=== PATIENT | female | born 1945 | race Caucasian/White ===

== ENCOUNTER 2017-03-12 15:39 | Inpatient (IN) | payer OTHER ==
[~2017-03-12] VITALS: Ht 167.6 cm; Wt 122.6 kg
[~2017-03-12 15:39] MED LIST: ACID1TAB7 PO; AMLO5TAB2 PO; CLIN300C8 PO; COLC0.6T37 PO; FURO20TA3 PO; GLIP10TA13 PO; INSU100I18 SQ-INSULIN; INSU100V5 SQ-INSULIN; LOSA25TA2 PO; LOSA25TA5 PO; METF10002 PO; NPH,100V SQ; NPH,100V SQ-INSULIN; NYST60PO TP; ONDA4VIA4 IVPush; OXYC10TA6 PO; OXYC1TAB7 PO; OXYC5TAB3 PO; POLY17PO5 PO; POTA10TA11 PO
[2017-03-12] MEDS ORDERED: SODIUM CHLORIDE FLUSH 10ML SYR IVF ONE (16:00)
[2017-03-12 16:22] LABS: BASOPHILS # (AUTO) 0.16 x10^3/uL (0-0.1); BASOPHILS % (AUTO) 1 % (0-1); EOSINOPHILS # (AUTO) 0.12 x10^3/uL (0-0.4); EOSINOPHILS % (AUTO) 1 % (1-7); LYMPHOCYTES # (AUTO) 1.94 x10^3/uL (1-3.4); LYMPHOCYTES % (AUTO) 15 % (22-44); MD NO; MEAN CORPUSCULAR HEMOGLOBIN 27.6 pg (27.0-34.8); MEAN CORPUSCULAR HGB CONC 32.8 g/dL (32.4-35.8); MEAN CORPUSCULAR VOLUME 84.1 fL (80-100); MEAN PLATELET VOLUME 10.5 fL (7.4-10.4); MONOCYTES # (AUTO) 0.55 x10^3/uL (0.2-0.8); MONOCYTES % (AUTO) 4 % (2-9); NEUTROPHILS # (AUTO) 10.59 x10^3/uL (1.8-6.8); NEUTROPHILS % (AUTO) 79 % (42-75); PLATELET COUNT 282 x10^3/uL (130-400); RED BLOOD COUNT 5.44 x10^6/uL (3.82-5.3); RED CELL DISTRIBUTION WIDTH 14.6 % (9.6-15.2)
[2017-03-12 16:31] LABS: INTERNATIONAL NORMALIZED RATIO 1.02 (0.93-1.1); PROTHROMBIN TIME 10.6 Seconds (9.6-11.5)
[2017-03-12 16:34] LABS: ALANINE AMINOTRANSFERASE 50 U/L (12-78); ALBUMIN 3.6 g/dL (3.4-5.0); ANION GAP 13 mmol/L (5-15); CALCIUM 9.3 mg/dL (8.5-10.1); CHLORIDE 102 mmol/L (98-107); CREATININE 1.55 mg/dL (0.55-1.02)
[2017-03-12 16:38] LABS: ALKALINE PHOSPHATASE 100 U/L (45-117); TOTAL PROTEIN 8.1 g/dL (6.4-8.2); TROPONIN I 0.092 ng/mL (0.000-0.045)
[2017-03-12] MEDS ORDERED: SODIUM CHLORIDE 0.9% 1,000ML IVBOLUS ONE (17:30)
[2017-03-12] MEDS ORDERED: HEPARIN 5,000 UNITS/ML, 1ML IV ONE (19:30)
[2017-03-12] MEDS ORDERED: HEPARIN 5,000 UNITS/ML, 1ML ONE (19:44)
[2017-03-12] MEDS ORDERED: HEPARIN 25,000 UNITS/500ML PMX 500 ML ONE (19:44)
[2017-03-12] MEDS: HEPARIN 25,000 UNITS/500ML PMX 500 ML IV PRN (19:52)
[2017-03-12] MEDS ORDERED: SODIUM CHLORIDE FLUSH 10ML SYR IVF PRN (20:00)
[2017-03-12] MEDS ORDERED: morphine SULFATE 10 MG/ML, 1ML IVPush PRN (20:30)
[2017-03-12] MEDS ORDERED: BISACODYL 10 MG SUPP PR PRN (20:30)
[2017-03-12] MEDS ORDERED: DOCUSATE 100 MG CAPSULE PO PRN (20:30)
[2017-03-12] MEDS ORDERED: LABETALOL 5MG/ML, 20ML IVPush PRN (20:30)
[2017-03-12] MEDS ORDERED: POLYETHYLENE GLYCOL 17 GM PACKET PO PRN ×2 (20:30)
[2017-03-12] MEDS ORDERED: ONDANSETRON 2MG/ML, 2ML IVPush PRN (20:30)
[2017-03-12] MEDS: AMLODIPINE 5 MG TABLET PO SCH (22:50)
[2017-03-12] MEDS: COLCHICINE 0.6 MG TABLET PO SCH (22:50)
[2017-03-12] MEDS: INSULIN ASPART 100 UNITS/ML, PEN SQ-INSULIN SCH (23:19)
[2017-03-12] MEDS ORDERED: OMNIPAQUE 350 MG/ML, 100ML BOTTLE ONE (23:33)
[2017-03-13] MEDS ORDERED: NS + 20MEQ KCL 1,000 ML IV ONE ×2 (00:06→08:39)
[2017-03-13] MEDS: NS + 20MEQ KCL 1,000 ML IV SCH ×3 (00:14→18:00)
[2017-03-13] MEDS: NYSTATIN TOPICAL POWDER 15GM TP SCH ×3 (01:40→20:25)
[2017-03-13] MEDS ORDERED: HYDROcodone/APAP 5/325 TABLET ONE (02:06)
[2017-03-13] MEDS: HYDROcodone/APAP 5/325 TABLET PO PRN ×2 (02:09→19:46)
[2017-03-13 02:22] LABS: ALANINE AMINOTRANSFERASE 38 U/L (12-78); ANION GAP 9 mmol/L (5-15); CALCIUM 8.5 mg/dL (8.5-10.1); CHLORIDE 109 mmol/L (98-107); CREATININE 1.59 mg/dL (0.55-1.02)
[2017-03-13 02:24] LABS: ALKALINE PHOSPHATASE 84 U/L (45-117); BASOPHILS # (AUTO) 0.01 x10^3/uL (0-0.1); BASOPHILS % (AUTO) 0 % (0-1); BILIRUBIN,TOTAL 0.5 mg/dL (0.2-1.0); EOSINOPHILS # (AUTO) 0.07 x10^3/uL (0-0.4); EOSINOPHILS % (AUTO) 1 % (1-7); LYMPHOCYTES # (AUTO) 2.09 x10^3/uL (1-3.4); LYMPHOCYTES % (AUTO) 22 % (22-44); MD NO; MEAN CORPUSCULAR HEMOGLOBIN 27.4 pg (27.0-34.8); MEAN CORPUSCULAR HGB CONC 32.8 g/dL (32.4-35.8); MEAN CORPUSCULAR VOLUME 83.8 fL (80-100); MEAN PLATELET VOLUME 10.3 fL (7.4-10.4); MONOCYTES # (AUTO) 0.78 x10^3/uL (0.2-0.8); MONOCYTES % (AUTO) 8 % (2-9); NEUTROPHILS # (AUTO) 6.45 x10^3/uL (1.8-6.8); NEUTROPHILS % (AUTO) 69 % (42-75); PLATELET COUNT 250 x10^3/uL (130-400); RED BLOOD COUNT 4.91 x10^6/uL (3.82-5.3); RED CELL DISTRIBUTION WIDTH 14.6 % (9.6-15.2); TOTAL PROTEIN 6.9 g/dL (6.4-8.2)
[2017-03-13] MEDS ORDERED: HEPARIN 5,000 UNITS/ML, 1ML ONE ×2 (02:46→08:39)
[2017-03-13] MEDS: HEPARIN 5,000 UNITS/ML, 1ML IV PRN ×3 (02:49→21:59)
[2017-03-13] MEDS: COLCHICINE 0.6 MG TABLET PO SCH ×3 (09:02→19:42)
[2017-03-13] MEDS: AMLODIPINE 5 MG TABLET PO SCH ×2 (09:02→20:25)
[2017-03-13] MEDS: LOSARTAN 25MG TABLET PO SCH (09:03)
[2017-03-13] MEDS: INSULIN ASPART 100 UNITS/ML, PEN SQ-INSULIN SCH ×4 (09:11→20:29)
[2017-03-13] MEDS ORDERED: PHARMACOKINETIC MONITORING MC PRN (13:30)
[2017-03-13] MEDS ORDERED: PHARMACOKINETIC CONSULTATION MC ONE (13:30)
[2017-03-13] MEDS ORDERED: VANCOMYCIN PER PHARMACY MC PRN (13:30)
[2017-03-13] MEDS ORDERED: VANCOMYCIN 2,200 MG in SODIUM CHLORIDE 0.9% 500 ML IV SCH (14:00)
[2017-03-13] MEDS: HEPARIN 25,000 UNITS/500ML PMX 500 ML IV PRN (19:20)
[2017-03-14] MEDS: NS + 20MEQ KCL 1,000 ML IV SCH ×2 (03:17→06:32)
[2017-03-14] MEDS: HYDROcodone/APAP 5/325 TABLET PO PRN (03:17)
[2017-03-14 04:38] LABS: BASOPHILS # (AUTO) 0.03 x10^3/uL (0-0.1); BASOPHILS % (AUTO) 0 % (0-1); EOSINOPHILS # (AUTO) 0.26 x10^3/uL (0-0.4); EOSINOPHILS % (AUTO) 3 % (1-7); LYMPHOCYTES # (AUTO) 2.11 x10^3/uL (1-3.4); LYMPHOCYTES % (AUTO) 24 % (22-44); MD NO; MEAN CORPUSCULAR HEMOGLOBIN 27.5 pg (27.0-34.8); MEAN CORPUSCULAR HGB CONC 32.2 g/dL (32.4-35.8); MEAN CORPUSCULAR VOLUME 85.3 fL (80-100); MEAN PLATELET VOLUME 10.6 fL (7.4-10.4); MONOCYTES # (AUTO) 0.76 x10^3/uL (0.2-0.8); MONOCYTES % (AUTO) 9 % (2-9); NEUTROPHILS # (AUTO) 5.75 x10^3/uL (1.8-6.8); NEUTROPHILS % (AUTO) 65 % (42-75); PLATELET COUNT 203 x10^3/uL (130-400); RED BLOOD COUNT 4.51 x10^6/uL (3.82-5.3); RED CELL DISTRIBUTION WIDTH 14.6 % (9.6-15.2)
[2017-03-14 04:49] LABS: CHLORIDE 109 mmol/L (98-107)
[2017-03-14 04:56] LABS: ALANINE AMINOTRANSFERASE 33 U/L (12-78); ALBUMIN 2.8 g/dL (3.4-5.0); ALKALINE PHOSPHATASE 73 U/L (45-117); ANION GAP 8 mmol/L (5-15); BILIRUBIN,TOTAL 0.7 mg/dL (0.2-1.0); CALCIUM 8.2 mg/dL (8.5-10.1); CREATININE 1.32 mg/dL (0.55-1.02); TOTAL PROTEIN 6.5 g/dL (6.4-8.2)
[2017-03-14] MEDS: LOSARTAN 25MG TABLET PO SCH (08:44)
[2017-03-14] MEDS: INSULIN ASPART 100 UNITS/ML, PEN SQ-INSULIN SCH ×4 (08:44→21:58)
[2017-03-14] MEDS: NYSTATIN TOPICAL POWDER 15GM TP SCH ×2 (08:44→21:58)
[2017-03-14] MEDS: AMLODIPINE 5 MG TABLET PO SCH ×2 (08:44→21:57)
[2017-03-14] MEDS: COLCHICINE 0.6 MG TABLET PO SCH (08:45)
[2017-03-14] MEDS: HEPARIN 5,000 UNITS/ML, 1ML IV PRN (10:44)
[2017-03-14] MEDS: HEPARIN 25,000 UNITS/500ML PMX 500 ML IV PRN (14:14)
[2017-03-14] MEDS ORDERED: MAGNESIUM SULFATE PMX 2GM/50ML 50 ML IV ONE (15:00)
[2017-03-14] MEDS: ASPIRIN 81 MG TABLET EC PO SCH (15:03)
[2017-03-14 19:23] VITALS: BP 151/77
[2017-03-14] MEDS: ATORVASTATIN 40 MG TABLET PO SCH (21:57)
[2017-03-15 01:28] VITALS: BP 153/85
[2017-03-15] MEDS: HEPARIN 5,000 UNITS/ML, 1ML IV PRN ×3 (01:52→21:27)
[2017-03-15] MEDS: VANCOMYCIN 2,200 MG in SODIUM CHLORIDE 0.9% 500 ML IV SCH (06:06)
[2017-03-15] MEDS: HEPARIN 25,000 UNITS/500ML PMX 500 ML IV PRN ×2 (06:16→21:22)
[2017-03-15 07:15] LABS: BASOPHILS # (AUTO) 0.04 x10^3/uL (0-0.1); BASOPHILS % (AUTO) 1 % (0-1); EOSINOPHILS # (AUTO) 0.35 x10^3/uL (0-0.4); EOSINOPHILS % (AUTO) 4 % (1-7); LYMPHOCYTES # (AUTO) 1.64 x10^3/uL (1-3.4); LYMPHOCYTES % (AUTO) 21 % (22-44); MD NO; MEAN CORPUSCULAR HEMOGLOBIN 27.5 pg (27.0-34.8); MEAN CORPUSCULAR HGB CONC 32.4 g/dL (32.4-35.8); MEAN CORPUSCULAR VOLUME 84.8 fL (80-100); MEAN PLATELET VOLUME 10.6 fL (7.4-10.4); MONOCYTES # (AUTO) 0.63 x10^3/uL (0.2-0.8); MONOCYTES % (AUTO) 8 % (2-9); NEUTROPHILS % (AUTO) 67 % (42-75); PLATELET COUNT 206 x10^3/uL (130-400); RED BLOOD COUNT 4.54 x10^6/uL (3.82-5.3); RED CELL DISTRIBUTION WIDTH 14.3 % (9.6-15.2)
[2017-03-15 07:28] LABS: ALBUMIN 2.7 g/dL (3.4-5.0); ANION GAP 8 mmol/L (5-15); CALCIUM 8.4 mg/dL (8.5-10.1); CHLORIDE 108 mmol/L (98-107)
[2017-03-15 07:29] VITALS: BP 138/76
[2017-03-15 07:31] LABS: ALANINE AMINOTRANSFERASE 32 U/L (12-78); ALKALINE PHOSPHATASE 72 U/L (45-117); BILIRUBIN,TOTAL 0.8 mg/dL (0.2-1.0); CREATININE 1.11 mg/dL (0.55-1.02); TOTAL PROTEIN 6.4 g/dL (6.4-8.2)
[2017-03-15] MEDS: INSULIN ASPART 100 UNITS/ML, PEN SQ-INSULIN SCH ×4 (08:44→20:53)
[2017-03-15] MEDS: NYSTATIN TOPICAL POWDER 15GM TP SCH ×2 (08:58→20:53)
[2017-03-15] MEDS: AMLODIPINE 5 MG TABLET PO SCH ×2 (08:58→20:52)
[2017-03-15] MEDS: LOSARTAN 25MG TABLET PO SCH (08:58)
[2017-03-15 14:03] VITALS: BP 136/85
[2017-03-15] MEDS: ASPIRIN 81 MG TABLET EC PO SCH (14:12)
[2017-03-15 19:19] VITALS: BP 132/74
[2017-03-15] MEDS: ATORVASTATIN 40 MG TABLET PO SCH (20:52)
[2017-03-16 03:47] VITALS: BP 160/84
[2017-03-16 03:54] LABS: BASOPHILS # (AUTO) 0.07 x10^3/uL (0-0.1); BASOPHILS % (AUTO) 1 % (0-1); EOSINOPHILS # (AUTO) 0.45 x10^3/uL (0-0.4); EOSINOPHILS % (AUTO) 6 % (1-7); LYMPHOCYTES # (AUTO) 2.37 x10^3/uL (1-3.4); LYMPHOCYTES % (AUTO) 30 % (22-44); MD NO; MEAN CORPUSCULAR HEMOGLOBIN 27.5 pg (27.0-34.8); MEAN CORPUSCULAR HGB CONC 32.6 g/dL (32.4-35.8); MEAN CORPUSCULAR VOLUME 84.4 fL (80-100); MEAN PLATELET VOLUME 11.3 fL (7.4-10.4); MONOCYTES # (AUTO) 0.63 x10^3/uL (0.2-0.8); MONOCYTES % (AUTO) 8 % (2-9); NEUTROPHILS # (AUTO) 4.43 x10^3/uL (1.8-6.8); NEUTROPHILS % (AUTO) 56 % (42-75); PLATELET COUNT 205 x10^3/uL (130-400); RED CELL DISTRIBUTION WIDTH 14.4 % (9.6-15.2)
[2017-03-16 04:07] LABS: ANION GAP 5 mmol/L (5-15); CALCIUM 8.7 mg/dL (8.5-10.1); CHLORIDE 106 mmol/L (98-107)
[2017-03-16 08:08] VITALS: BP 148/74
[2017-03-16] MEDS: INSULIN ASPART 100 UNITS/ML, PEN SQ-INSULIN SCH ×4 (08:32→22:05)
[2017-03-16] MEDS: AMLODIPINE 5 MG TABLET PO SCH ×2 (08:32→21:59)
[2017-03-16] MEDS: LOSARTAN 25MG TABLET PO SCH (08:32)
[2017-03-16] MEDS: NYSTATIN TOPICAL POWDER 15GM TP SCH ×2 (08:33→22:01)
[2017-03-16] MEDS: ACETAMINOPHEN 325 MG TABLET PO PRN (09:54)
[2017-03-16] MEDS: HEPARIN 25,000 UNITS/500ML PMX 500 ML IV PRN ×2 (09:59→23:11)
[2017-03-16 13:40] VITALS: BP 135/77
[2017-03-16] MEDS: ASPIRIN 81 MG TABLET EC PO SCH (15:00)
[2017-03-16] MEDS ORDERED: MAGNESIUM SULFATE PMX 2GM/50ML 50 ML IV ONE (15:00)
[2017-03-16 16:53] LABS: MICROSCOPIC AUTO
[2017-03-16 16:54] LABS: CULTURE INDICATED? NO
[2017-03-16] MEDS: VANCOMYCIN 2,200 MG in SODIUM CHLORIDE 0.9% 500 ML IV SCH (18:00)
[2017-03-16 19:58] VITALS: BP 155/83
[2017-03-16] MEDS: ATORVASTATIN 40 MG TABLET PO SCH (21:59)
[2017-03-17 00:17] VITALS: BP 165/86
[2017-03-17 07:39] VITALS: BP 131/78
[2017-03-17] MEDS: INSULIN ASPART 100 UNITS/ML, PEN SQ-INSULIN SCH ×4 (09:27→22:03)
[2017-03-17] MEDS: LOSARTAN 25MG TABLET PO SCH (09:32)
[2017-03-17] MEDS: NYSTATIN TOPICAL POWDER 15GM TP SCH ×2 (09:32→22:00)
[2017-03-17] MEDS: AMLODIPINE 5 MG TABLET PO SCH ×2 (09:32→21:58)
[2017-03-17] MEDS ORDERED: ATOR40TA78 PO (12:42)
[2017-03-17] MEDS ORDERED: RIVA15TA PO (12:42)
[2017-03-17 13:48] VITALS: BP 147/84
[2017-03-17] MEDS: HEPARIN 25,000 UNITS/500ML PMX 500 ML IV PRN (14:29)
[2017-03-17] MEDS: ASPIRIN 81 MG TABLET EC PO SCH (16:41)
[2017-03-17] MEDS: RIVAROXABAN 15 MG TABLET PO SCH (18:21)
[2017-03-17] MEDS ORDERED: RIVAROXABAN 15 MG TABLET PO SCH (21:00)
[2017-03-17 21:10] VITALS: BP 137/78
[2017-03-17] MEDS: ATORVASTATIN 40 MG TABLET PO SCH (21:59)
[2017-03-18 02:52] VITALS: BP 161/82
[2017-03-18] MEDS: VANCOMYCIN 2,200 MG in SODIUM CHLORIDE 0.9% 500 ML IV SCH (05:12)
[2017-03-18 07:25] VITALS: BP 106/69
[2017-03-18] MEDS: LOSARTAN 25MG TABLET PO SCH (10:03)
[2017-03-18] MEDS: AMLODIPINE 5 MG TABLET PO SCH ×2 (10:04→21:30)
[2017-03-18] MEDS: NYSTATIN TOPICAL POWDER 15GM TP SCH ×2 (10:04→21:30)
[2017-03-18] MEDS: INSULIN ASPART 100 UNITS/ML, PEN SQ-INSULIN SCH ×4 (10:06→21:35)
[2017-03-18] MEDS: RIVAROXABAN 15 MG TABLET PO SCH ×2 (11:15→17:53)
[2017-03-18 13:35] VITALS: BP 160/83
[2017-03-18 14:56] VITALS: BP 133/67
[2017-03-18] MEDS: ASPIRIN 81 MG TABLET EC PO SCH (15:56)
[2017-03-18 20:00] VITALS: BP 144/78
[2017-03-18] MEDS: ATORVASTATIN 40 MG TABLET PO SCH (21:30)
[2017-03-19 02:13] VITALS: BP 144/71
[2017-03-19] MEDS: LOSARTAN 25MG TABLET PO SCH (09:41)
[2017-03-19] MEDS: RIVAROXABAN 15 MG TABLET PO SCH ×2 (09:41→16:50)
[2017-03-19] MEDS: INSULIN ASPART 100 UNITS/ML, PEN SQ-INSULIN SCH ×4 (09:41→20:14)
[2017-03-19] MEDS: AMLODIPINE 5 MG TABLET PO SCH ×2 (09:41→20:10)
[2017-03-19] MEDS: NYSTATIN TOPICAL POWDER 15GM TP SCH ×2 (09:42→20:15)
[2017-03-19 13:03] VITALS: BP 135/76
[2017-03-19] MEDS: ASPIRIN 81 MG TABLET EC PO SCH (16:50)
[2017-03-19 20:07] VITALS: BP 148/82
[2017-03-19] MEDS: ATORVASTATIN 40 MG TABLET PO SCH (20:10)
[2017-03-20] MEDS: ACETAMINOPHEN 325 MG TABLET PO PRN (01:05)
[2017-03-20 01:18] VITALS: BP 136/72
[2017-03-20 06:50] VITALS: BP 155/82
[2017-03-20] MEDS: INSULIN ASPART 100 UNITS/ML, PEN SQ-INSULIN SCH ×2 (07:46→12:18)
[2017-03-20] MEDS: AMLODIPINE 5 MG TABLET PO SCH (07:47)
[2017-03-20] MEDS: RIVAROXABAN 15 MG TABLET PO SCH (07:47)
[2017-03-20] MEDS: LOSARTAN 25MG TABLET PO SCH (07:47)
[2017-03-20] MEDS: NYSTATIN TOPICAL POWDER 15GM TP SCH (12:16)
== END 2017-03-20 14:16 | DRG 280 ==
LOC: ED 18:22 → EDIP 19:33 → CCU 03-13 09:46 → 5SO 03-14 12:45
PROVIDERS: ADMIT Internal Medicine; ATTEND Internal Medicine
DX: I21.4 Non-ST elevation (NSTEMI) myocardial infarction (principal); J96.01 Acute respiratory failure with hypoxia; I26.92 Saddle embolus of pulmonary artery without acute cor pulmonale; N17.0 Acute kidney failure with tubular necrosis; E87.2 Acidosis; I82.432 Acute embolism and thrombosis of left popliteal vein; I82.492 Acute embolism and thrombosis of other specified deep vein of left lower extremity; E11.65 Type 2 diabetes mellitus with hyperglycemia; I07.1 Rheumatic tricuspid insufficiency; I11.9 Hypertensive heart disease without heart failure; Z66 Do not resuscitate; M19.90 Unspecified osteoarthritis, unspecified site; G90.9 Disorder of the autonomic nervous system, unspecified; Z79.4 Long term (current) use of insulin; Z87.891 Personal history of nicotine dependence; Z90.49 Acquired absence of other specified parts of digestive tract; Z80.9 Family history of malignant neoplasm, unspecified; Z79.899 Other long term (current) drug therapy
CPT/HCPCS: 36415; 36600; 71045; 71275; 80048; 80053; 80202; 81001; 82803; 82962; 83605; 83735; 83880; 84484; 85014; 85018; 85025; 85520; 85610; 85730; 87040; 87081; 93005; 93306; 93970; 96361; 96372; 96374; 96376; J1644; J1815; J3370; J3480; Q9967; J3475; J7030; J7040

== ENCOUNTER 2017-04-28 15:40 | Inpatient (IN) | payer OTHER ==
[~2017-04-28] VITALS: Ht 167.6 cm; Wt 112.8 kg
[~2017-04-28 15:40] MED LIST changes: +ATOR40TA78 PO; +RIVA15TA PO
[2017-04-28] MEDS ORDERED: FURO20TA3 PO (16:06)
[2017-04-28] MEDS ORDERED: CIPR250T27 PO (16:06)
[2017-04-28] MEDS ORDERED: GLIP5TAB10 PO (16:06)
[2017-04-28] MEDS ORDERED: OXYC5CAP2 PO (16:06)
[2017-04-28] MEDS ORDERED: NYST1POW TP (16:06)
[2017-04-28] MEDS ORDERED: AMOX125T PO (16:06)
[2017-04-28 16:28] LABS: BASOPHILS # (AUTO) 0.02 x10^3/uL (0-0.1); BASOPHILS % (AUTO) 0 % (0-1); EOSINOPHILS # (AUTO) 0.05 x10^3/uL (0-0.4); EOSINOPHILS % (AUTO) 0 % (1-7); LYMPHOCYTES # (AUTO) 1.15 x10^3/uL (1-3.4); LYMPHOCYTES % (AUTO) 8 % (22-44); MD NO; MEAN CORPUSCULAR HEMOGLOBIN 27.1 pg (27.0-34.8); MEAN CORPUSCULAR HGB CONC 33.1 g/dL (32.4-35.8); MEAN CORPUSCULAR VOLUME 82.1 fL (80-100); MONOCYTES # (AUTO) 0.65 x10^3/uL (0.2-0.8); MONOCYTES % (AUTO) 5 % (2-9); NEUTROPHILS # (AUTO) 12.34 x10^3/uL (1.8-6.8); NEUTROPHILS % (AUTO) 87 % (42-75); PLATELET COUNT 328 x10^3/uL (130-400); RED BLOOD COUNT 4.82 x10^6/uL (3.82-5.3)
[2017-04-28] MEDS ORDERED: SODIUM CHLORIDE FLUSH 10ML SYR IVF ONE (16:30)
[2017-04-28 16:38] LABS: ALANINE AMINOTRANSFERASE 13 U/L (12-78); ALBUMIN 3.3 g/dL (3.4-5.0); ANION GAP 12 mmol/L (5-15); CALCIUM 8.6 mg/dL (8.5-10.1); CHLORIDE 105 mmol/L (98-107); CREATININE 2.27 mg/dL (0.55-1.02)
[2017-04-28 16:43] LABS: ALKALINE PHOSPHATASE 85 U/L (45-117); BILIRUBIN,TOTAL 1.5 mg/dL (0.2-1.0); TOTAL PROTEIN 8.1 g/dL (6.4-8.2)
[2017-04-28 17:51] LABS: CULTURE INDICATED? YES; MICROSCOPIC INDICATED
[2017-04-28] MEDS ORDERED: CLINDAMYCIN PMX 600MG/50ML 50 ML ONE (17:59)
[2017-04-28] MEDS ORDERED: CLINDAMYCIN PMX 600MG/50ML 50 ML IV ONE (18:00)
[2017-04-28 18:10] LABS: TROPONIN I < 0.015 ng/mL (0.000-0.045)
[2017-04-28] MEDS ORDERED: DOCUSATE 100 MG CAPSULE PO PRN (19:30)
[2017-04-28] MEDS ORDERED: ONDANSETRON 2MG/ML, 2ML IVPush PRN (19:30)
[2017-04-28] MEDS ORDERED: AMPICILLIN/SULBACTAM 1,500 MG in SODIUM CHLORIDE 0.9% 50 ML IV SCH (19:30)
[2017-04-28] MEDS ORDERED: morphine SULFATE 10 MG/ML, 1ML IVPush PRN (19:30)
[2017-04-28] MEDS ORDERED: DEXTROSE 4 GM TAB.CHEW PO PRN (19:30)
[2017-04-28] MEDS ORDERED: POLYETHYLENE GLYCOL 17 GM PACKET PO PRN (19:30)
[2017-04-28] MEDS ORDERED: DEXTROSE 50%, 50ML SYRINGE IVPush PRN (19:30)
[2017-04-28] MEDS ORDERED: GLUCAGON 1 MG IM PRN (19:30)
[2017-04-28] MEDS ORDERED: ACETAMINOPHEN 325 MG TABLET PO PRN (19:30)
[2017-04-28] MEDS ORDERED: RIVAROXABAN 15 MG TABLET PO SCH (21:00)
[2017-04-28 21:50] VITALS: BP 117/68
[2017-04-28] MEDS: OXYcodone IR 5MG TABLET PO PRN (22:03)
[2017-04-28] MEDS: AMPICILLIN/SULBACTAM 1,500 MG in SODIUM CHLORIDE 0.9% 100 ML IV SCH (22:04)
[2017-04-28] MEDS: NYSTATIN TOPICAL POWDER 15GM TP SCH (22:04)
[2017-04-28] MEDS: SODIUM CHLORIDE 0.9% 1,000 ML IV SCH (22:04)
[2017-04-28] MEDS: SODIUM CHLORIDE FLUSH 10ML SYR IVF SCH (22:05)
[2017-04-28] MEDS: ATORVASTATIN 40 MG TABLET PO SCH (22:13)
[2017-04-28] MEDS: AMLODIPINE 5 MG TABLET PO SCH (22:13)
[2017-04-28 22:35] VITALS: BP 111/68
[2017-04-29 01:14] VITALS: BP 110/64
[2017-04-29] MEDS: AMPICILLIN/SULBACTAM 1,500 MG in SODIUM CHLORIDE 0.9% 100 ML IV SCH ×3 (04:00→18:31)
[2017-04-29 05:35] LABS: ANION GAP 10 mmol/L (5-15); CHLORIDE 108 mmol/L (98-107)
[2017-04-29 05:39] LABS: CREATININE 2.05 mg/dL (0.55-1.02)
[2017-04-29 05:46] LABS: BASOPHILS # (AUTO) 0.04 x10^3/uL (0-0.1); BASOPHILS % (AUTO) 0 % (0-1); EOSINOPHILS # (AUTO) 0.12 x10^3/uL (0-0.4); EOSINOPHILS % (AUTO) 1 % (1-7); LYMPHOCYTES # (AUTO) 1.24 x10^3/uL (1-3.4); LYMPHOCYTES % (AUTO) 10 % (22-44); MD NO; MEAN CORPUSCULAR HEMOGLOBIN 27.4 pg (27.0-34.8); MEAN CORPUSCULAR HGB CONC 32.9 g/dL (32.4-35.8); MEAN CORPUSCULAR VOLUME 83.3 fL (80-100); MEAN PLATELET VOLUME 11.1 fL (7.4-10.4); MONOCYTES # (AUTO) 0.84 x10^3/uL (0.2-0.8); MONOCYTES % (AUTO) 7 % (2-9); NEUTROPHILS # (AUTO) 10.21 x10^3/uL (1.8-6.8); NEUTROPHILS % (AUTO) 82 % (42-75); PLATELET COUNT 327 x10^3/uL (130-400); RED BLOOD COUNT 4.34 x10^6/uL (3.82-5.3); RED CELL DISTRIBUTION WIDTH 14.7 % (9.6-15.2)
[2017-04-29 06:46] VITALS: BP 112/73
[2017-04-29] MEDS: INSULIN LISPRO 100 UNITS/ML, PEN SQ-INSULIN SCH ×4 (07:00→20:16)
[2017-04-29] MEDS: LOSARTAN 25MG TABLET PO SCH (09:00)
[2017-04-29] MEDS: AMLODIPINE 5 MG TABLET PO SCH ×2 (09:00→20:16)
[2017-04-29] MEDS ORDERED: FUROSEMIDE 40 MG/4 ML IV ONE (09:00)
[2017-04-29] MEDS: SODIUM CHLORIDE FLUSH 10ML SYR IVF SCH ×2 (10:14→20:16)
[2017-04-29] MEDS: SENNA/DOCUSATE TABLET PO SCH (10:15)
[2017-04-29] MEDS: RIVAROXABAN 20 MG TABLET PO SCH (10:15)
[2017-04-29] MEDS: OXYcodone IR 5MG TABLET PO PRN ×2 (10:16→23:13)
[2017-04-29] MEDS: NYSTATIN TOPICAL POWDER 15GM TP SCH ×2 (10:16→20:16)
[2017-04-29] MEDS: SODIUM CHLORIDE 0.9% 1,000 ML IV SCH (12:30)
[2017-04-29] MEDS: HYDROcodone/APAP 5/325 TABLET PO PRN (12:32)
[2017-04-29 17:30] VITALS: BP 135/68
[2017-04-29 19:45] VITALS: BP 115/62
[2017-04-29] MEDS: ATORVASTATIN 40 MG TABLET PO SCH (20:16)
[2017-04-30 02:07] VITALS: BP 115/61
[2017-04-30] MEDS: AMPICILLIN/SULBACTAM 1,500 MG in SODIUM CHLORIDE 0.9% 100 ML IV SCH (02:54)
[2017-04-30] MEDS ORDERED: AMPICILLIN/SULBACTAM 1,500 MG in SODIUM CHLORIDE 0.9% 50 ML IV SCH (03:00)
[2017-04-30] MEDS: HYDROcodone/APAP 5/325 TABLET PO PRN ×3 (04:59→15:19)
[2017-04-30 08:26] VITALS: BP 116/64
[2017-04-30] MEDS: AMLODIPINE 5 MG TABLET PO SCH (08:50)
[2017-04-30] MEDS: SODIUM CHLORIDE FLUSH 10ML SYR IVF SCH ×2 (08:50→20:50)
[2017-04-30] MEDS: LOSARTAN 25MG TABLET PO SCH (08:50)
[2017-04-30] MEDS: SENNA/DOCUSATE TABLET PO SCH (09:48)
[2017-04-30] MEDS: INSULIN LISPRO 100 UNITS/ML, PEN SQ-INSULIN SCH ×4 (09:48→20:51)
[2017-04-30] MEDS: NYSTATIN TOPICAL POWDER 15GM TP SCH ×2 (09:49→20:51)
[2017-04-30] MEDS: RIVAROXABAN 20 MG TABLET PO SCH (09:49)
[2017-04-30] MEDS: AMPICILLIN/SULBACTAM 1,500 MG in SODIUM CHLORIDE 0.9% 50 ML IV SCH ×3 (12:18→23:45)
[2017-04-30 12:56] VITALS: BP 122/71
[2017-04-30] MEDS: ATORVASTATIN 40 MG TABLET PO SCH (20:50)
[2017-04-30 20:59] VITALS: BP 125/65
[2017-05-01 03:05] VITALS: BP 134/76
[2017-05-01] MEDS: AMPICILLIN/SULBACTAM 1,500 MG in SODIUM CHLORIDE 0.9% 50 ML IV SCH ×3 (06:07→23:02)
[2017-05-01] MEDS: INSULIN LISPRO 100 UNITS/ML, PEN SQ-INSULIN SCH ×4 (07:00→23:06)
[2017-05-01 08:13] VITALS: BP 131/71
[2017-05-01] MEDS: SODIUM CHLORIDE FLUSH 10ML SYR IVF SCH ×2 (08:47→23:05)
[2017-05-01] MEDS: LOSARTAN 25MG TABLET PO SCH (08:47)
[2017-05-01] MEDS: HYDROcodone/APAP 5/325 TABLET PO PRN ×2 (08:47→13:03)
[2017-05-01] MEDS: SENNA/DOCUSATE TABLET PO SCH (08:47)
[2017-05-01] MEDS: NYSTATIN TOPICAL POWDER 15GM TP SCH ×2 (08:51→23:05)
[2017-05-01] MEDS: RIVAROXABAN 20 MG TABLET PO SCH (08:51)
[2017-05-01 13:25] VITALS: BP 125/67
[2017-05-01] MEDS ORDERED: ACETAMINOPHEN 325 MG TABLET PO PRN (15:00)
[2017-05-01] MEDS: SODIUM BICARBONATE 8.4% 150 MEQ in DEXTROSE 5% 1,000 ML IV SCH (16:49)
[2017-05-01 19:14] VITALS: BP 134/76
[2017-05-01] MEDS: ATORVASTATIN 40 MG TABLET PO SCH (23:05)
[2017-05-02] MEDS: SODIUM BICARBONATE 8.4% 150 MEQ in DEXTROSE 5% 1,000 ML IV SCH ×2 (01:48→15:42)
[2017-05-02 03:17] VITALS: BP 133/72
[2017-05-02 05:31] LABS: HCT (SEDRATE) 36.1 % (34.6-47.8); MEAN CORPUSCULAR HEMOGLOBIN 27.4 pg (27.0-34.8); MEAN CORPUSCULAR HGB CONC 33.2 g/dL (32.4-35.8); MEAN CORPUSCULAR VOLUME 82.6 fL (80-100); MEAN PLATELET VOLUME 10.5 fL (7.4-10.4); PLATELET COUNT 332 x10^3/uL (130-400); RED BLOOD COUNT 4.37 x10^6/uL (3.82-5.3); RED CELL DISTRIBUTION WIDTH 14.6 % (9.6-15.2)
[2017-05-02 05:43] LABS: CHLORIDE 100 mmol/L (98-107)
[2017-05-02] MEDS: AMPICILLIN/SULBACTAM 1,500 MG in SODIUM CHLORIDE 0.9% 50 ML IV SCH ×4 (05:51→22:22)
[2017-05-02 05:53] LABS: BASOPHILS # (AUTO) 0.01 x10^3/uL (0-0.1); BASOPHILS % (AUTO) 0 % (0-1); EOSINOPHILS % (AUTO) 0 % (1-7); LYMPHOCYTES # (AUTO) 0.66 x10^3/uL (1-3.4); LYMPHOCYTES % (AUTO) 7 % (22-44); MD SCAN; MONOCYTES # (AUTO) 0.15 x10^3/uL (0.2-0.8); MONOCYTES % (AUTO) 2 % (2-9); NEUTROPHILS # (AUTO) 8.77 x10^3/uL (1.8-6.8); NEUTROPHILS % (AUTO) 92 % (42-75)
[2017-05-02 05:57] LABS: ANION GAP 12 mmol/L (5-15)
[2017-05-02 05:58] LABS: SEDIMENTATION RATE 87 mm/hr (0-20)
[2017-05-02 07:42] VITALS: BP 129/72
[2017-05-02] MEDS: INSULIN LISPRO 100 UNITS/ML, PEN SQ-INSULIN SCH ×4 (07:52→21:58)
[2017-05-02] MEDS: RIVAROXABAN 20 MG TABLET PO SCH (10:27)
[2017-05-02] MEDS: SENNA/DOCUSATE TABLET PO SCH (10:28)
[2017-05-02] MEDS: LOSARTAN 25MG TABLET PO SCH (10:28)
[2017-05-02] MEDS: NYSTATIN TOPICAL POWDER 15GM TP SCH ×2 (12:36→21:00)
[2017-05-02 13:22] VITALS: BP 155/71
[2017-05-02] MEDS: SODIUM CHLORIDE FLUSH 10ML SYR IVF SCH ×2 (15:38→21:46)
[2017-05-02] MEDS: GABAPENTIN 300 MG CAPSULE PO SCH ×3 (15:42→21:45)
[2017-05-02 20:11] VITALS: BP 123/66
[2017-05-02] MEDS: ATORVASTATIN 40 MG TABLET PO SCH (21:45)
[2017-05-03 01:46] VITALS: BP 137/74
[2017-05-03] MEDS: SODIUM BICARBONATE 8.4% 150 MEQ in DEXTROSE 5% 1,000 ML IV SCH (02:00)
[2017-05-03] MEDS: AMPICILLIN/SULBACTAM 1,500 MG in SODIUM CHLORIDE 0.9% 50 ML IV SCH ×3 (04:10→22:11)
[2017-05-03 07:49] VITALS: BP 132/79
[2017-05-03] MEDS: INSULIN LISPRO 100 UNITS/ML, PEN SQ-INSULIN SCH ×4 (08:42→22:20)
[2017-05-03] MEDS: RIVAROXABAN 20 MG TABLET PO SCH (10:44)
[2017-05-03] MEDS: GABAPENTIN 300 MG CAPSULE PO SCH ×3 (10:44→22:03)
[2017-05-03] MEDS: SODIUM CHLORIDE FLUSH 10ML SYR IVF SCH ×2 (10:45→22:20)
[2017-05-03] MEDS: NYSTATIN TOPICAL POWDER 15GM TP SCH ×2 (10:45→22:19)
[2017-05-03] MEDS: LOSARTAN 25MG TABLET PO SCH (10:45)
[2017-05-03] MEDS: SENNA/DOCUSATE TABLET PO SCH (10:49)
[2017-05-03] MEDS ORDERED: MAGNESIUM SULFATE PMX 4GM/100M 100 ML IV ONE (11:00)
[2017-05-03 13:28] VITALS: BP 124/69
[2017-05-03 19:11] VITALS: BP 122/67
[2017-05-03] MEDS ORDERED: INSULIN GLARGINE 100 UNITS/ML, PEN SQ-INSULIN SCH (21:00)
[2017-05-03] MEDS: ATORVASTATIN 40 MG TABLET PO SCH (22:03)
[2017-05-04] MEDS ORDERED: SODIUM BICARBONATE 8.4% 150 MEQ in DEXTROSE 5% 1,000 ML IV SCH (02:00)
[2017-05-04 04:00] VITALS: BP 129/72
[2017-05-04] MEDS: AMPICILLIN/SULBACTAM 1,500 MG in SODIUM CHLORIDE 0.9% 50 ML IV SCH ×3 (04:10→16:27)
[2017-05-04 07:02] VITALS: BP 119/63
[2017-05-04] MEDS: INSULIN LISPRO 100 UNITS/ML, PEN SQ-INSULIN SCH ×3 (08:17→16:27)
[2017-05-04] MEDS: SODIUM CHLORIDE FLUSH 10ML SYR IVF SCH (08:17)
[2017-05-04] MEDS: SENNA/DOCUSATE TABLET PO SCH (08:18)
[2017-05-04] MEDS: GABAPENTIN 300 MG CAPSULE PO SCH ×2 (08:18→16:27)
[2017-05-04] MEDS: RIVAROXABAN 20 MG TABLET PO SCH (08:18)
[2017-05-04] MEDS: NYSTATIN TOPICAL POWDER 15GM TP SCH (08:18)
[2017-05-04] MEDS: LOSARTAN 25MG TABLET PO SCH (08:18)
[2017-05-04] MEDS ORDERED: PRED5TAB PO (12:17)
[2017-05-04] MEDS ORDERED: INSU100I13 SQ-INSULIN (12:17)
[2017-05-04] MEDS ORDERED: NYST1POW TP (12:17)
[2017-05-04] MEDS ORDERED: GLIP5TAB10 PO (12:17)
[2017-05-04] MEDS ORDERED: INSU100I11 SQ-INSULIN (12:17)
[2017-05-04] MEDS ORDERED: ATOR40TA78 PO (12:17)
[2017-05-04] MEDS ORDERED: AMOX1TAB64 PO (12:17)
[2017-05-04] MEDS ORDERED: GABA300C10 PO (12:17)
[2017-05-04] MEDS ORDERED: POLY17PO5 PO (12:17)
[2017-05-04] MEDS ORDERED: LOSA25TA2 PO (12:17)
[2017-05-04 13:56] VITALS: BP 143/76
[2017-05-05] MEDS ORDERED: RIVA15TA PO (21:09)
== END 2017-05-04 17:49 | disposition home health service (06) | DRG 871 ==
LOC: ED 18:19 → EDIP 18:44 → 3NE 19:52
PROVIDERS: ADMIT Family Medicine; ATTEND Family Medicine
PROC: 0T9B70Z Drainage of Bladder with Drainage Device, Via Natural or Artificial Opening (ICD-10-PCS; principal; 2017-04-28)
DX: A41.9 Sepsis, unspecified organism (principal); N17.0 Acute kidney failure with tubular necrosis; L89.159 Pressure ulcer of sacral region, unspecified stage; D68.69 Other thrombophilia; E11.65 Type 2 diabetes mellitus with hyperglycemia; E11.40 Type 2 diabetes mellitus with diabetic neuropathy, unspecified; I82.502 Chronic embolism and thrombosis of unspecified deep veins of left lower extremity; L03.116 Cellulitis of left lower limb; N39.0 Urinary tract infection, site not specified; Z68.41 Body mass index [BMI] 40.0-44.9, adult; E66.01 Morbid (severe) obesity due to excess calories; E86.9 Volume depletion, unspecified; I10 Essential (primary) hypertension; M10.9 Gout, unspecified; R32 Unspecified urinary incontinence; Z66 Do not resuscitate; Z68.38 Body mass index [BMI] 38.0-38.9, adult; Z79.01 Long term (current) use of anticoagulants; Z86.711 Personal history of pulmonary embolism; Z87.891 Personal history of nicotine dependence
CPT/HCPCS: 36415; 71045; 71046; 80048; 80053; 81001; 82962; 83605; 83735; 83880; 84100; 84145; 84484; 85025; 85651; 86140; 87040; 87086; 93005; 96365; J1940; J7070; J0295; J1815; J3475; J7030; J7512

== ENCOUNTER 2017-05-05 17:39 | Inpatient (IN) | payer OTHER ==
[~2017-05-05] VITALS: Ht 167.6 cm; Wt 114.5 kg
[~2017-05-05 17:39] MED LIST changes: +AMOX125T PO; +AMOX1TAB64 PO; +CIPR250T27 PO; +GABA300C10 PO; +GLIP5TAB10 PO; +INSU100I11 SQ-INSULIN; +INSU100I13 SQ-INSULIN; +NYST1POW TP; +OXYC5CAP2 PO; +PRED5TAB PO
[2017-05-05] MEDS ORDERED: SODIUM CHLORIDE 0.9% 1,000ML IVBOLUS ONE (18:30)
[2017-05-05] MEDS ORDERED: SODIUM CHLORIDE FLUSH 10ML SYR IVF ONE (18:30)
[2017-05-05 18:34] LABS: MICROSCOPIC INDICATED
[2017-05-05 18:41] LABS: CULTURE INDICATED? NO
[2017-05-05 18:48] LABS: MEAN CORPUSCULAR HEMOGLOBIN 27.1 pg (27.0-34.8); MEAN CORPUSCULAR HGB CONC 32.4 g/dL (32.4-35.8); MEAN CORPUSCULAR VOLUME 83.5 fL (80-100); MEAN PLATELET VOLUME 10.4 fL (7.4-10.4); PLATELET COUNT 480 x10^3/uL (130-400); RED BLOOD COUNT 4.85 x10^6/uL (3.82-5.3); RED CELL DISTRIBUTION WIDTH 14.4 % (9.6-15.2)
[2017-05-05 18:59] LABS: ANION GAP 8 mmol/L (5-15); CALCIUM 8.3 mg/dL (8.5-10.1); CHLORIDE 98 mmol/L (98-107)
[2017-05-05 19:03] LABS: ALANINE AMINOTRANSFERASE 56 U/L (12-78); ALKALINE PHOSPHATASE 124 U/L (45-117); BILIRUBIN,TOTAL 0.7 mg/dL (0.2-1.0); TOTAL PROTEIN 7.6 g/dL (6.4-8.2)
[2017-05-05 19:16] LABS: MD YES
[2017-05-05 19:20] LABS: LYMPH#(MANUAL) 1.82 x10^3/uL (1-3.4); LYMPHS% (MANUAL) 9 % (22-44); MONOS#(MANUAL) 0.81 x10^3/uL (0.3-2.7); MONOS% (MANUAL) 4 % (2-9); SEG#(MANUAL) 17.57 x10^3/uL (1.8-6.8); SEGS% (MANUAL) 87 % (42-75)
[2017-05-05 19:21] LABS: <PLATELET ESTIMATE> INCREASED; <PLT MORPHOLOGY> NORMAL PLT MORPH; <RBC MORPHOLOGY> NORMAL
[2017-05-05] MEDS: NYSTATIN TOPICAL POWDER 15GM TP SCH (21:00)
[2017-05-05] MEDS ORDERED: HEPARIN 5,000 UNITS/ML, 1ML SQ SCH (21:00)
[2017-05-05] MEDS ORDERED: INSULIN LISPRO 100 UNITS/ML, PEN SQ-INSULIN SCH (21:00)
[2017-05-05] MEDS ORDERED: ONDANSETRON 2MG/ML, 2ML IVPush PRN (21:00)
[2017-05-05] MEDS ORDERED: RIVA15TA PO (21:09)
[2017-05-05 21:51] LABS: HEMOGLOBIN A1C 9.1 % (4.2-6.3)
[2017-05-05 22:59] VITALS: BP 130/58
[2017-05-05] MEDS: INSULIN LISPRO 100 UNITS/ML, PEN LOW DOSE SS SQ-INSULIN SCH (23:43)
[2017-05-05] MEDS: ATORVASTATIN 40 MG TABLET PO SCH (23:44)
[2017-05-05] MEDS: metroNIDAZOLE 500 MG TABLET PO SCH (23:44)
[2017-05-05] MEDS: GABAPENTIN 300 MG CAPSULE PO SCH (23:44)
[2017-05-05] MEDS: INSULIN GLARGINE 100 UNITS/ML, PEN SQ-INSULIN SCH (23:44)
[2017-05-05] MEDS: SODIUM CHLORIDE 0.9% 1,000 ML IV SCH (23:45)
[2017-05-06 02:55] VITALS: BP 117/56
[2017-05-06] MEDS: RIVAROXABAN 20 MG TABLET PO SCH (05:17)
[2017-05-06 05:51] LABS: MEAN CORPUSCULAR HGB CONC 32.9 g/dL (32.4-35.8); MEAN CORPUSCULAR VOLUME 82.1 fL (80-100); MEAN PLATELET VOLUME 10.3 fL (7.4-10.4); PLATELET COUNT 384 x10^3/uL (130-400); RED BLOOD COUNT 4.03 x10^6/uL (3.82-5.3); RED CELL DISTRIBUTION WIDTH 14.7 % (9.6-15.2)
[2017-05-06 05:54] LABS: CHLORIDE 103 mmol/L (98-107)
[2017-05-06 06:09] LABS: ALANINE AMINOTRANSFERASE 36 U/L (12-78); ALBUMIN 2.3 g/dL (3.4-5.0); ALKALINE PHOSPHATASE 84 U/L (45-117); ANION GAP 7 mmol/L (5-15); BILIRUBIN,TOTAL 0.9 mg/dL (0.2-1.0); CALCIUM 7.6 mg/dL (8.5-10.1); CREATININE 1.24 mg/dL (0.55-1.02); TOTAL PROTEIN 5.9 g/dL (6.4-8.2)
[2017-05-06 06:27] LABS: MD SCAN
[2017-05-06 06:28] LABS: BASOPHILS # (AUTO) 0.03 x10^3/uL (0-0.1); BASOPHILS % (AUTO) 0 % (0-1); EOSINOPHILS # (AUTO) 0.37 x10^3/uL (0-0.4); EOSINOPHILS % (AUTO) 3 % (1-7); LYMPHOCYTES # (AUTO) 1.98 x10^3/uL (1-3.4); LYMPHOCYTES % (AUTO) 13 % (22-44); MONOCYTES # (AUTO) 0.54 x10^3/uL (0.2-0.8); MONOCYTES % (AUTO) 4 % (2-9); NEUTROPHILS # (AUTO) 12.08 x10^3/uL (1.8-6.8); NEUTROPHILS % (AUTO) 81 % (42-75)
[2017-05-06] MEDS: INSULIN LISPRO 100 UNITS/ML, PEN LOW DOSE SS SQ-INSULIN SCH ×4 (07:00→21:43)
[2017-05-06 07:47] VITALS: BP 122/63
[2017-05-06] MEDS: NYSTATIN TOPICAL POWDER 15GM TP SCH ×2 (09:00→21:00)
[2017-05-06] MEDS: SODIUM CHLORIDE 0.9% 1,000 ML IV SCH ×2 (09:44→18:00)
[2017-05-06] MEDS: GABAPENTIN 300 MG CAPSULE PO SCH ×3 (09:44→21:42)
[2017-05-06] MEDS: LOSARTAN 25MG TABLET PO SCH (09:44)
[2017-05-06] MEDS: metroNIDAZOLE 500 MG TABLET PO SCH ×2 (09:44→16:28)
[2017-05-06 13:32] VITALS: BP 149/68
[2017-05-06] MEDS: OXYcodone IR 5MG TABLET PO PRN (16:28)
[2017-05-06 20:13] VITALS: BP 132/75
[2017-05-06] MEDS: ATORVASTATIN 40 MG TABLET PO SCH (21:42)
[2017-05-06] MEDS: INSULIN GLARGINE 100 UNITS/ML, PEN SQ-INSULIN SCH (21:42)
[2017-05-07] MEDS: metroNIDAZOLE 500 MG TABLET PO SCH ×3 (00:21→17:08)
[2017-05-07] MEDS: OXYcodone IR 5MG TABLET PO PRN ×3 (00:21→12:44)
[2017-05-07 00:23] VITALS: BP 132/50
[2017-05-07] MEDS: SODIUM CHLORIDE 0.9% 1,000 ML IV SCH ×2 (04:04→14:42)
[2017-05-07] MEDS: RIVAROXABAN 20 MG TABLET PO SCH (05:17)
[2017-05-07 05:24] LABS: BASOPHILS # (AUTO) 0.05 x10^3/uL (0-0.1); BASOPHILS % (AUTO) 0 % (0-1); EOSINOPHILS # (AUTO) 0.37 x10^3/uL (0-0.4); EOSINOPHILS % (AUTO) 3 % (1-7); LYMPHOCYTES # (AUTO) 2.05 x10^3/uL (1-3.4); LYMPHOCYTES % (AUTO) 16 % (22-44); MD NO; MEAN CORPUSCULAR HGB CONC 32.8 g/dL (32.4-35.8); MEAN CORPUSCULAR VOLUME 82.3 fL (80-100); MEAN PLATELET VOLUME 9.8 fL (7.4-10.4); MONOCYTES # (AUTO) 0.62 x10^3/uL (0.2-0.8); MONOCYTES % (AUTO) 5 % (2-9); NEUTROPHILS % (AUTO) 76 % (42-75); PLATELET COUNT 371 x10^3/uL (130-400); RED BLOOD COUNT 3.88 x10^6/uL (3.82-5.3); RED CELL DISTRIBUTION WIDTH 14.9 % (9.6-15.2)
[2017-05-07 05:34] LABS: ANION GAP 9 mmol/L (5-15); CALCIUM 7.3 mg/dL (8.5-10.1); CHLORIDE 105 mmol/L (98-107); CREATININE 1.32 mg/dL (0.55-1.02)
[2017-05-07 06:54] VITALS: BP 120/55
[2017-05-07] MEDS ORDERED: POTASSIUM CHLORIDE 20 MEQ TAB.ER.PRT PO ONE (08:30)
[2017-05-07] MEDS: INSULIN LISPRO 100 UNITS/ML, PEN LOW DOSE SS SQ-INSULIN SCH ×4 (08:32→20:09)
[2017-05-07] MEDS: LOSARTAN 25MG TABLET PO SCH (08:35)
[2017-05-07] MEDS: GABAPENTIN 300 MG CAPSULE PO SCH ×3 (08:35→20:09)
[2017-05-07] MEDS: NYSTATIN TOPICAL POWDER 15GM TP SCH ×2 (08:35→20:10)
[2017-05-07] MEDS ORDERED: POTASSIUM CHLORIDE 20 MEQ TAB.ER.PRT ONE (12:33)
[2017-05-07 14:36] VITALS: BP 125/69
[2017-05-07 15:44] LABS: BASOPHILS # (AUTO) 0.06 x10^3/uL (0-0.1); BASOPHILS % (AUTO) 0 % (0-1); EOSINOPHILS # (AUTO) 0.33 x10^3/uL (0-0.4); EOSINOPHILS % (AUTO) 2 % (1-7); LYMPHOCYTES # (AUTO) 1.79 x10^3/uL (1-3.4); LYMPHOCYTES % (AUTO) 13 % (22-44); MD NO; MEAN CORPUSCULAR HEMOGLOBIN 26.5 pg (27.0-34.8); MEAN CORPUSCULAR HGB CONC 32.2 g/dL (32.4-35.8); MEAN CORPUSCULAR VOLUME 82.3 fL (80-100); MEAN PLATELET VOLUME 10.3 fL (7.4-10.4); MONOCYTES # (AUTO) 0.71 x10^3/uL (0.2-0.8); MONOCYTES % (AUTO) 5 % (2-9); NEUTROPHILS # (AUTO) 10.86 x10^3/uL (1.8-6.8); NEUTROPHILS % (AUTO) 79 % (42-75); PLATELET COUNT 357 x10^3/uL (130-400); RED CELL DISTRIBUTION WIDTH 15.3 % (9.6-15.2)
[2017-05-07 15:55] LABS: ANION GAP 9 mmol/L (5-15); CALCIUM 7.7 mg/dL (8.5-10.1); CHLORIDE 105 mmol/L (98-107); CREATININE 1.31 mg/dL (0.55-1.02)
[2017-05-07 19:00] VITALS: BP 131/54
[2017-05-07] MEDS: INSULIN GLARGINE 100 UNITS/ML, PEN SQ-INSULIN SCH (20:07)
[2017-05-07] MEDS: ATORVASTATIN 40 MG TABLET PO SCH (20:09)
[2017-05-08] MEDS: SODIUM CHLORIDE 0.9% 1,000 ML IV SCH ×2 (00:28→08:56)
[2017-05-08] MEDS: metroNIDAZOLE 500 MG TABLET PO SCH ×3 (00:30→16:34)
[2017-05-08 01:22] VITALS: BP 151/67
[2017-05-08] MEDS: RIVAROXABAN 20 MG TABLET PO SCH (05:26)
[2017-05-08] MEDS: OXYcodone IR 5MG TABLET PO PRN ×3 (05:27→19:24)
[2017-05-08] MEDS: INSULIN LISPRO 100 UNITS/ML, PEN LOW DOSE SS SQ-INSULIN SCH ×3 (07:00→16:33)
[2017-05-08] MEDS: GABAPENTIN 300 MG CAPSULE PO SCH ×3 (08:55→19:24)
[2017-05-08] MEDS: LOSARTAN 25MG TABLET PO SCH (08:55)
[2017-05-08] MEDS: NYSTATIN TOPICAL POWDER 15GM TP SCH ×2 (08:56→19:24)
[2017-05-08 09:18] VITALS: BP 134/64
[2017-05-08 13:54] VITALS: BP 149/76
[2017-05-08 18:59] VITALS: BP 136/59
[2017-05-08] MEDS: ACETAMINOPHEN 325 MG TABLET PO PRN (19:14)
[2017-05-08] MEDS: ATORVASTATIN 40 MG TABLET PO SCH (19:24)
[2017-05-08] MEDS: INSULIN GLARGINE 100 UNITS/ML, PEN SQ-INSULIN SCH (19:25)
[2017-05-08] MEDS: INSULIN LISPRO 100 UNITS/ML, PEN SQ-INSULIN SCH (19:26)
[2017-05-09 00:55] VITALS: BP 146/77
[2017-05-09] MEDS: OXYcodone IR 5MG TABLET PO PRN ×4 (01:24→22:09)
[2017-05-09 05:50] LABS: BASOPHILS # (AUTO) 0.06 x10^3/uL (0-0.1); BASOPHILS % (AUTO) 1 % (0-1); EOSINOPHILS # (AUTO) 0.57 x10^3/uL (0-0.4); EOSINOPHILS % (AUTO) 5 % (1-7); LYMPHOCYTES # (AUTO) 1.73 x10^3/uL (1-3.4); LYMPHOCYTES % (AUTO) 15 % (22-44); MD NO; MEAN CORPUSCULAR HEMOGLOBIN 26.4 pg (27.0-34.8); MEAN CORPUSCULAR HGB CONC 32.1 g/dL (32.4-35.8); MEAN CORPUSCULAR VOLUME 82.2 fL (80-100); MEAN PLATELET VOLUME 10.9 fL (7.4-10.4); MONOCYTES # (AUTO) 0.91 x10^3/uL (0.2-0.8); MONOCYTES % (AUTO) 8 % (2-9); NEUTROPHILS # (AUTO) 8.32 x10^3/uL (1.8-6.8); NEUTROPHILS % (AUTO) 72 % (42-75); PLATELET COUNT 313 x10^3/uL (130-400); RED BLOOD COUNT 4.24 x10^6/uL (3.82-5.3)
[2017-05-09] MEDS: RIVAROXABAN 20 MG TABLET PO SCH (05:50)
[2017-05-09 06:03] LABS: ANION GAP 9 mmol/L (5-15); CALCIUM 8.1 mg/dL (8.5-10.1); CHLORIDE 104 mmol/L (98-107); CREATININE 1.25 mg/dL (0.55-1.02)
[2017-05-09] MEDS: INSULIN LISPRO 100 UNITS/ML, PEN SQ-INSULIN SCH ×4 (07:00→20:03)
[2017-05-09] MEDS ORDERED: MAGNESIUM SULFATE PMX 2GM/50ML 50 ML IV ONE (07:30)
[2017-05-09 07:40] VITALS: BP 116/67
[2017-05-09] MEDS: LOSARTAN 25MG TABLET PO SCH (08:27)
[2017-05-09] MEDS: GABAPENTIN 300 MG CAPSULE PO SCH ×3 (08:27→20:02)
[2017-05-09] MEDS: NYSTATIN TOPICAL POWDER 15GM TP SCH ×2 (08:30→20:04)
[2017-05-09 08:40] LABS: MICROSCOPIC AUTO
[2017-05-09 08:52] LABS: CULTURE INDICATED? YES
[2017-05-09] MEDS: CEFTRIAXONE 2 GM in SODIUM CHLORIDE 0.9% 50 ML IV SCH (11:27)
[2017-05-09 13:07] VITALS: BP 118/66
[2017-05-09 19:44] VITALS: BP 143/63
[2017-05-09] MEDS: ATORVASTATIN 40 MG TABLET PO SCH (20:02)
[2017-05-09] MEDS: INSULIN GLARGINE 100 UNITS/ML, PEN SQ-INSULIN SCH (20:03)
[2017-05-09] MEDS: ACETAMINOPHEN 325 MG TABLET PO PRN (20:03)
[2017-05-10 01:47] VITALS: BP 115/69
[2017-05-10] MEDS: RIVAROXABAN 20 MG TABLET PO SCH (04:50)
[2017-05-10] MEDS: OXYcodone IR 5MG TABLET PO PRN ×3 (04:51→16:09)
[2017-05-10 05:24] LABS: BASOPHILS # (AUTO) 0.04 x10^3/uL (0-0.1); BASOPHILS % (AUTO) 0 % (0-1); EOSINOPHILS # (AUTO) 0.53 x10^3/uL (0-0.4); EOSINOPHILS % (AUTO) 5 % (1-7); LYMPHOCYTES # (AUTO) 2.26 x10^3/uL (1-3.4); LYMPHOCYTES % (AUTO) 20 % (22-44); MD NO; MEAN CORPUSCULAR HEMOGLOBIN 27.2 pg (27.0-34.8); MEAN CORPUSCULAR HGB CONC 32.8 g/dL (32.4-35.8); MEAN PLATELET VOLUME 9.9 fL (7.4-10.4); MONOCYTES # (AUTO) 1.02 x10^3/uL (0.2-0.8); MONOCYTES % (AUTO) 9 % (2-9); NEUTROPHILS # (AUTO) 7.43 x10^3/uL (1.8-6.8); NEUTROPHILS % (AUTO) 66 % (42-75); PLATELET COUNT 319 x10^3/uL (130-400); RED BLOOD COUNT 4.05 x10^6/uL (3.82-5.3)
[2017-05-10 05:40] LABS: ALBUMIN 2.1 g/dL (3.4-5.0); ANION GAP 9 mmol/L (5-15); CALCIUM 8.2 mg/dL (8.5-10.1); CHLORIDE 106 mmol/L (98-107)
[2017-05-10 05:41] LABS: CREATININE 1.28 mg/dL (0.55-1.02)
[2017-05-10 06:36] VITALS: BP 115/76
[2017-05-10] MEDS: INSULIN LISPRO 100 UNITS/ML, PEN SQ-INSULIN SCH ×4 (07:00→20:52)
[2017-05-10] MEDS: NYSTATIN TOPICAL POWDER 15GM TP SCH ×2 (09:00→20:39)
[2017-05-10 10:02] LABS: HCT (SEDRATE) 33.9 % (34.6-47.8)
[2017-05-10] MEDS: GABAPENTIN 300 MG CAPSULE PO SCH ×3 (10:10→20:39)
[2017-05-10] MEDS: LOSARTAN 25MG TABLET PO SCH (10:10)
[2017-05-10] MEDS: CEFTRIAXONE 2 GM in SODIUM CHLORIDE 0.9% 50 ML IV SCH (11:29)
[2017-05-10 12:34] LABS: RAPID INFLUENZA A Negative (Negative); RAPID INFLUENZA B Negative (Negative)
[2017-05-10 13:00] VITALS: BP 140/66
[2017-05-10 18:58] VITALS: BP 116/68
[2017-05-10] MEDS: ACETAMINOPHEN 325 MG TABLET PO PRN (20:39)
[2017-05-10] MEDS: ATORVASTATIN 40 MG TABLET PO SCH (20:39)
[2017-05-10] MEDS: INSULIN GLARGINE 100 UNITS/ML, PEN SQ-INSULIN SCH (20:52)
[2017-05-11 02:28] VITALS: BP 128/69
[2017-05-11] MEDS: OXYcodone IR 5MG TABLET PO PRN ×3 (02:46→19:51)
[2017-05-11] MEDS: RIVAROXABAN 20 MG TABLET PO SCH (06:18)
[2017-05-11 06:55] VITALS: BP 134/79
[2017-05-11] MEDS: INSULIN LISPRO 100 UNITS/ML, PEN SQ-INSULIN SCH ×4 (07:00→21:13)
[2017-05-11] MEDS: NYSTATIN TOPICAL POWDER 15GM TP SCH ×2 (07:34→21:13)
[2017-05-11] MEDS: LOSARTAN 25MG TABLET PO SCH (07:34)
[2017-05-11] MEDS: GABAPENTIN 300 MG CAPSULE PO SCH ×3 (07:34→21:11)
[2017-05-11 08:14] LABS: BASOPHILS # (AUTO) 0.06 x10^3/uL (0-0.1); BASOPHILS % (AUTO) 1 % (0-1); EOSINOPHILS # (AUTO) 0.44 x10^3/uL (0-0.4); EOSINOPHILS % (AUTO) 4 % (1-7); LYMPHOCYTES # (AUTO) 1.51 x10^3/uL (1-3.4); LYMPHOCYTES % (AUTO) 12 % (22-44); MD NO; MEAN CORPUSCULAR HEMOGLOBIN 26.8 pg (27.0-34.8); MEAN CORPUSCULAR HGB CONC 32.2 g/dL (32.4-35.8); MEAN CORPUSCULAR VOLUME 83.1 fL (80-100); MEAN PLATELET VOLUME 10.2 fL (7.4-10.4); MONOCYTES # (AUTO) 1.07 x10^3/uL (0.2-0.8); MONOCYTES % (AUTO) 9 % (2-9); NEUTROPHILS # (AUTO) 9.16 x10^3/uL (1.8-6.8); NEUTROPHILS % (AUTO) 75 % (42-75); PLATELET COUNT 379 x10^3/uL (130-400); RED BLOOD COUNT 4.33 x10^6/uL (3.82-5.3); RED CELL DISTRIBUTION WIDTH 15.3 % (9.6-15.2)
[2017-05-11 08:27] LABS: ANION GAP 10 mmol/L (5-15); CALCIUM 8.4 mg/dL (8.5-10.1); CHLORIDE 102 mmol/L (98-107); CREATININE 1.18 mg/dL (0.55-1.02)
[2017-05-11 08:28] LABS: ALANINE AMINOTRANSFERASE 17 U/L (12-78); ALBUMIN 2.2 g/dL (3.4-5.0)
[2017-05-11 08:30] LABS: ALKALINE PHOSPHATASE 73 U/L (45-117); BILIRUBIN,TOTAL 0.6 mg/dL (0.2-1.0); TOTAL PROTEIN 6.7 g/dL (6.4-8.2)
[2017-05-11] MEDS: CEFTRIAXONE 2 GM in SODIUM CHLORIDE 0.9% 50 ML IV SCH (11:51)
[2017-05-11 13:39] VITALS: BP 130/72
[2017-05-11] MEDS: AMPICILLIN/SULBACTAM 3 GM in SODIUM CHLORIDE 0.9% 100 ML IV SCH ×2 (16:52→22:36)
[2017-05-11 19:37] VITALS: BP 138/78
[2017-05-11] MEDS: ATORVASTATIN 40 MG TABLET PO SCH (21:11)
[2017-05-11] MEDS: INSULIN GLARGINE 100 UNITS/ML, PEN SQ-INSULIN SCH (21:12)
[2017-05-12 00:26] VITALS: BP 122/69
[2017-05-12] MEDS: OXYcodone IR 5MG TABLET PO PRN ×3 (03:11→16:27)
[2017-05-12] MEDS: AMPICILLIN/SULBACTAM 3 GM in SODIUM CHLORIDE 0.9% 100 ML IV SCH ×3 (05:10→18:32)
[2017-05-12] MEDS: RIVAROXABAN 20 MG TABLET PO SCH (05:14)
[2017-05-12] MEDS: ACETAMINOPHEN 325 MG TABLET PO PRN (06:14)
[2017-05-12 07:00] VITALS: BP 124/71
[2017-05-12] MEDS: INSULIN LISPRO 100 UNITS/ML, PEN SQ-INSULIN SCH ×4 (07:00→20:28)
[2017-05-12 08:31] LABS: ANION GAP 10 mmol/L (5-15); CHLORIDE 102 mmol/L (98-107); CREATININE 1.04 mg/dL (0.55-1.02)
[2017-05-12 08:39] LABS: BASOPHILS # (AUTO) 0.01 x10^3/uL (0-0.1); BASOPHILS % (AUTO) 0 % (0-1); EOSINOPHILS # (AUTO) 0.36 x10^3/uL (0-0.4); EOSINOPHILS % (AUTO) 3 % (1-7); LYMPHOCYTES % (AUTO) 9 % (22-44); MD NO; MEAN CORPUSCULAR HEMOGLOBIN 26.6 pg (27.0-34.8); MEAN CORPUSCULAR HGB CONC 32.3 g/dL (32.4-35.8); MEAN CORPUSCULAR VOLUME 82.2 fL (80-100); MEAN PLATELET VOLUME 9.7 fL (7.4-10.4); MONOCYTES # (AUTO) 1.04 x10^3/uL (0.2-0.8); MONOCYTES % (AUTO) 10 % (2-9); NEUTROPHILS # (AUTO) 8.53 x10^3/uL (1.8-6.8); NEUTROPHILS % (AUTO) 78 % (42-75); PLATELET COUNT 372 x10^3/uL (130-400); RED BLOOD COUNT 3.64 x10^6/uL (3.82-5.3); RED CELL DISTRIBUTION WIDTH 15.1 % (9.6-15.2)
[2017-05-12] MEDS: FLUCONAZOLE 400 MG/200 ML 200 ML IV SCH (10:01)
[2017-05-12] MEDS: GABAPENTIN 300 MG CAPSULE PO SCH ×3 (10:01→20:27)
[2017-05-12] MEDS: LOSARTAN 25MG TABLET PO SCH (10:01)
[2017-05-12] MEDS: NYSTATIN TOPICAL POWDER 15GM TP SCH ×2 (10:05→20:28)
[2017-05-12 13:55] VITALS: BP 120/69
[2017-05-12] MEDS ORDERED: BISACODYL 10 MG SUPP PR PRN (15:00)
[2017-05-12] MEDS ORDERED: POLYETHYLENE GLYCOL 17 GM PACKET PO PRN (15:00)
[2017-05-12] MEDS ORDERED: SENNA/DOCUSATE TABLET PO PRN (15:00)
[2017-05-12] MEDS ORDERED: MAGNESIUM SULFATE PMX 2GM/50ML 50 ML IV ONE (18:00)
[2017-05-12 19:12] VITALS: BP_SYST 128; BP_SYST 156; BP_DIAS 82; BP_DIAS 83
[2017-05-12] MEDS: ATORVASTATIN 40 MG TABLET PO SCH (20:27)
[2017-05-12] MEDS: INSULIN GLARGINE 100 UNITS/ML, PEN SQ-INSULIN SCH (20:28)
[2017-05-13] MEDS: AMPICILLIN/SULBACTAM 3 GM in SODIUM CHLORIDE 0.9% 100 ML IV SCH ×4 (00:10→17:54)
[2017-05-13] MEDS: OXYcodone IR 5MG TABLET PO PRN ×4 (00:53→23:12)
[2017-05-13 00:54] VITALS: BP 126/67
[2017-05-13 04:52] LABS: BASOPHILS # (AUTO) 0.13 x10^3/uL (0-0.1); BASOPHILS % (AUTO) 1 % (0-1); EOSINOPHILS # (AUTO) 0.34 x10^3/uL (0-0.4); EOSINOPHILS % (AUTO) 3 % (1-7); LYMPHOCYTES # (AUTO) 1.31 x10^3/uL (1-3.4); LYMPHOCYTES % (AUTO) 11 % (22-44); MD NO; MEAN CORPUSCULAR HEMOGLOBIN 26.6 pg (27.0-34.8); MEAN CORPUSCULAR HGB CONC 32.5 g/dL (32.4-35.8); MEAN CORPUSCULAR VOLUME 81.8 fL (80-100); MEAN PLATELET VOLUME 9.6 fL (7.4-10.4); MONOCYTES # (AUTO) 0.97 x10^3/uL (0.2-0.8); MONOCYTES % (AUTO) 9 % (2-9); NEUTROPHILS # (AUTO) 8.74 x10^3/uL (1.8-6.8); NEUTROPHILS % (AUTO) 76 % (42-75); PLATELET COUNT 399 x10^3/uL (130-400); RED BLOOD COUNT 3.74 x10^6/uL (3.82-5.3); RED CELL DISTRIBUTION WIDTH 15.2 % (9.6-15.2)
[2017-05-13 04:59] LABS: ALBUMIN 1.9 g/dL (3.4-5.0); ANION GAP 7 mmol/L (5-15); CALCIUM 8.3 mg/dL (8.5-10.1); CHLORIDE 103 mmol/L (98-107); CREATININE 1.14 mg/dL (0.55-1.02)
[2017-05-13] MEDS: RIVAROXABAN 20 MG TABLET PO SCH (06:02)
[2017-05-13 06:40] VITALS: BP 115/69
[2017-05-13] MEDS: FLUCONAZOLE 400 MG/200 ML 200 ML IV SCH (08:19)
[2017-05-13] MEDS: INSULIN LISPRO 100 UNITS/ML, PEN SQ-INSULIN SCH ×4 (08:20→21:07)
[2017-05-13] MEDS: DOCUSATE 100 MG CAPSULE PO SCH (08:20)
[2017-05-13] MEDS: LOSARTAN 25MG TABLET PO SCH (08:20)
[2017-05-13] MEDS: NYSTATIN TOPICAL POWDER 15GM TP SCH ×2 (08:20→21:08)
[2017-05-13] MEDS: GABAPENTIN 300 MG CAPSULE PO SCH ×3 (08:21→21:07)
[2017-05-13] MEDS ORDERED: DOCUSATE 100 MG CAPSULE PO PRN (09:00)
[2017-05-13 13:56] VITALS: BP 134/57
[2017-05-13 20:03] VITALS: BP 176/79
[2017-05-13] MEDS: ATORVASTATIN 40 MG TABLET PO SCH (21:07)
[2017-05-13] MEDS: INSULIN GLARGINE 100 UNITS/ML, PEN SQ-INSULIN SCH (21:08)
[2017-05-13] MEDS ORDERED: ACETAMINOPHEN 650 MG SUPP ONE (22:17)
[2017-05-13] MEDS ORDERED: ACETAMINOPHEN 650 MG SUPP PR PRN (22:30)
[2017-05-13 23:08] LABS: ALANINE AMINOTRANSFERASE 33 U/L (12-78); ALBUMIN 2.1 g/dL (3.4-5.0); ANION GAP 9 mmol/L (5-15); CALCIUM 8.4 mg/dL (8.5-10.1); CHLORIDE 102 mmol/L (98-107); CREATININE 1.28 mg/dL (0.55-1.02)
[2017-05-13 23:09] LABS: MICROSCOPIC NOT IND
[2017-05-13 23:10] LABS: ALKALINE PHOSPHATASE 107 U/L (45-117); BILIRUBIN,TOTAL 0.7 mg/dL (0.2-1.0); MEAN CORPUSCULAR HEMOGLOBIN 26.4 pg (27.0-34.8); MEAN CORPUSCULAR HGB CONC 32.6 g/dL (32.4-35.8); MEAN CORPUSCULAR VOLUME 81.1 fL (80-100); MEAN PLATELET VOLUME 9.8 fL (7.4-10.4); PLATELET COUNT 438 x10^3/uL (130-400); RED BLOOD COUNT 3.84 x10^6/uL (3.82-5.3); RED CELL DISTRIBUTION WIDTH 15.2 % (9.6-15.2); TOTAL PROTEIN 6.7 g/dL (6.4-8.2)
[2017-05-13] MEDS ORDERED: VANCOMYCIN PER PHARMACY MC PRN (23:30)
[2017-05-13 23:41] LABS: BASOPHILS # (AUTO) 0.02 x10^3/uL (0-0.1); BASOPHILS % (AUTO) 0 % (0-1); EOSINOPHILS # (AUTO) 0.05 x10^3/uL (0-0.4); EOSINOPHILS % (AUTO) 0 % (1-7); LYMPHOCYTES # (AUTO) 0.79 x10^3/uL (1-3.4); LYMPHOCYTES % (AUTO) 4 % (22-44); MD SCAN; MONOCYTES # (AUTO) 0.68 x10^3/uL (0.2-0.8); MONOCYTES % (AUTO) 4 % (2-9); NEUTROPHILS # (AUTO) 16.67 x10^3/uL (1.8-6.8); NEUTROPHILS % (AUTO) 92 % (42-75)
[2017-05-13] MEDS ORDERED: PHARMACOKINETIC MONITORING MC PRN (23:45)
[2017-05-14] MEDS ORDERED: VANCOMYCIN 2,200 MG in SODIUM CHLORIDE 0.9% 500 ML IV ONE
[2017-05-14] MEDS: PIPERACILLIN/TAZO/PMX 3.375GM 50 ML IV SCH ×5 (00:26→23:41)
[2017-05-14 01:52] VITALS: BP 116/62
[2017-05-14] MEDS: RIVAROXABAN 20 MG TABLET PO SCH (06:10)
[2017-05-14 07:26] VITALS: BP 90/44
[2017-05-14] MEDS: INSULIN LISPRO 100 UNITS/ML, PEN SQ-INSULIN SCH ×4 (08:01→20:23)
[2017-05-14] MEDS: OXYcodone IR 5MG TABLET PO PRN ×3 (08:02→21:39)
[2017-05-14] MEDS: LOSARTAN 25MG TABLET PO SCH (08:02)
[2017-05-14] MEDS: FLUCONAZOLE 400 MG/200 ML 200 ML IV SCH (08:02)
[2017-05-14] MEDS: GABAPENTIN 300 MG CAPSULE PO SCH ×3 (08:02→20:22)
[2017-05-14] MEDS: DOCUSATE 100 MG CAPSULE PO SCH (08:02)
[2017-05-14] MEDS: NYSTATIN TOPICAL POWDER 15GM TP SCH ×2 (08:08→20:30)
[2017-05-14 12:50] VITALS: BP 107/64
[2017-05-14] MEDS: LINEZOLID PMX 600MG/300ML 300 ML IV SCH (14:01)
[2017-05-14 20:15] VITALS: BP 119/65
[2017-05-14] MEDS: ACETAMINOPHEN 325 MG TABLET PO PRN (20:22)
[2017-05-14] MEDS: ATORVASTATIN 40 MG TABLET PO SCH (20:22)
[2017-05-14] MEDS: INSULIN GLARGINE 100 UNITS/ML, PEN SQ-INSULIN SCH (20:22)
[2017-05-15 01:15] VITALS: BP 103/64
[2017-05-15] MEDS: LINEZOLID PMX 600MG/300ML 300 ML IV SCH ×2 (01:50→14:58)
[2017-05-15] MEDS: OXYcodone IR 5MG TABLET PO PRN ×3 (03:30→16:28)
[2017-05-15] MEDS: RIVAROXABAN 20 MG TABLET PO SCH (05:38)
[2017-05-15] MEDS: PIPERACILLIN/TAZO/PMX 3.375GM 50 ML IV SCH ×4 (05:38→23:04)
[2017-05-15 06:03] LABS: ALBUMIN 1.8 g/dL (3.4-5.0); ANION GAP 7 mmol/L (5-15); CHLORIDE 103 mmol/L (98-107); CREATININE 1.28 mg/dL (0.55-1.02)
[2017-05-15 06:06] LABS: BASOPHILS # (AUTO) 0.03 x10^3/uL (0-0.1); BASOPHILS % (AUTO) 0 % (0-1); EOSINOPHILS # (AUTO) 0.43 x10^3/uL (0-0.4); EOSINOPHILS % (AUTO) 4 % (1-7); LYMPHOCYTES # (AUTO) 1.54 x10^3/uL (1-3.4); LYMPHOCYTES % (AUTO) 13 % (22-44); MD NO; MEAN CORPUSCULAR HEMOGLOBIN 27.1 pg (27.0-34.8); MEAN CORPUSCULAR VOLUME 81.9 fL (80-100); MEAN PLATELET VOLUME 9.6 fL (7.4-10.4); MONOCYTES # (AUTO) 0.68 x10^3/uL (0.2-0.8); MONOCYTES % (AUTO) 6 % (2-9); NEUTROPHILS # (AUTO) 9.52 x10^3/uL (1.8-6.8); NEUTROPHILS % (AUTO) 78 % (42-75); PLATELET COUNT 369 x10^3/uL (130-400); RED BLOOD COUNT 3.41 x10^6/uL (3.82-5.3); RED CELL DISTRIBUTION WIDTH 15.3 % (9.6-15.2)
[2017-05-15] MEDS: ACETAMINOPHEN 325 MG TABLET PO PRN (06:41)
[2017-05-15 06:52] VITALS: BP 127/72
[2017-05-15] MEDS: INSULIN LISPRO 100 UNITS/ML, PEN SQ-INSULIN SCH ×4 (07:00→21:34)
[2017-05-15] MEDS: GABAPENTIN 300 MG CAPSULE PO SCH ×3 (09:37→21:34)
[2017-05-15] MEDS: DOCUSATE 100 MG CAPSULE PO SCH (09:37)
[2017-05-15] MEDS: FLUCONAZOLE 400 MG/200 ML 200 ML IV SCH (09:37)
[2017-05-15] MEDS: LOSARTAN 25MG TABLET PO SCH (09:37)
[2017-05-15] MEDS: NYSTATIN TOPICAL POWDER 15GM TP SCH ×2 (09:39→21:34)
[2017-05-15 12:19] VITALS: BP 141/70
[2017-05-15 19:10] VITALS: BP 155/76
[2017-05-15] MEDS: INSULIN GLARGINE 100 UNITS/ML, PEN SQ-INSULIN SCH (21:33)
[2017-05-15] MEDS: ATORVASTATIN 40 MG TABLET PO SCH (21:34)
[2017-05-16 01:18] VITALS: BP 149/72
[2017-05-16] MEDS: LINEZOLID PMX 600MG/300ML 300 ML IV SCH ×2 (02:31→16:57)
[2017-05-16] MEDS: OXYcodone IR 5MG TABLET PO PRN ×4 (03:41→23:21)
[2017-05-16] MEDS: RIVAROXABAN 20 MG TABLET PO SCH (05:09)
[2017-05-16] MEDS: PIPERACILLIN/TAZO/PMX 3.375GM 50 ML IV SCH ×2 (05:09→13:22)
[2017-05-16 07:00] VITALS: BP 137/68
[2017-05-16] MEDS: ACETAMINOPHEN 325 MG TABLET PO PRN ×2 (07:30→13:14)
[2017-05-16] MEDS: GABAPENTIN 300 MG CAPSULE PO SCH ×3 (07:35→21:04)
[2017-05-16] MEDS: DOCUSATE 100 MG CAPSULE PO SCH (07:35)
[2017-05-16] MEDS: NYSTATIN TOPICAL POWDER 15GM TP SCH ×2 (07:35→21:04)
[2017-05-16] MEDS: INSULIN LISPRO 100 UNITS/ML, PEN SQ-INSULIN SCH ×4 (07:35→21:05)
[2017-05-16] MEDS: LOSARTAN 25MG TABLET PO SCH (07:35)
[2017-05-16 07:39] LABS: BASOPHILS # (AUTO) 0.02 x10^3/uL (0-0.1); BASOPHILS % (AUTO) 0 % (0-1); EOSINOPHILS # (AUTO) 0.42 x10^3/uL (0-0.4); EOSINOPHILS % (AUTO) 4 % (1-7); LYMPHOCYTES # (AUTO) 1.49 x10^3/uL (1-3.4); LYMPHOCYTES % (AUTO) 12 % (22-44); MD SCAN; MEAN CORPUSCULAR HEMOGLOBIN 26.2 pg (27.0-34.8); MEAN CORPUSCULAR HGB CONC 32.2 g/dL (32.4-35.8); MEAN CORPUSCULAR VOLUME 81.6 fL (80-100); MONOCYTES % (AUTO) 7 % (2-9); NEUTROPHILS # (AUTO) 9.44 x10^3/uL (1.8-6.8); NEUTROPHILS % (AUTO) 78 % (42-75); PLATELET COUNT 457 x10^3/uL (130-400); RED BLOOD COUNT 3.62 x10^6/uL (3.82-5.3); RED CELL DISTRIBUTION WIDTH 15.3 % (9.6-15.2)
[2017-05-16 07:48] LABS: ANION GAP 8 mmol/L (5-15); CALCIUM 8.1 mg/dL (8.5-10.1); CHLORIDE 102 mmol/L (98-107); CREATININE 1.25 mg/dL (0.55-1.02)
[2017-05-16] MEDS: FLUCONAZOLE 400 MG/200 ML 200 ML IV SCH (09:59)
[2017-05-16 12:35] VITALS: BP 133/76
[2017-05-16 19:22] VITALS: BP 139/84
[2017-05-16] MEDS: ATORVASTATIN 40 MG TABLET PO SCH (21:04)
[2017-05-16] MEDS: INSULIN GLARGINE 100 UNITS/ML, PEN SQ-INSULIN SCH (21:05)
[2017-05-17 01:56] VITALS: BP 127/78
[2017-05-17 05:37] LABS: BASOPHILS % (AUTO) 1 % (0-1); EOSINOPHILS # (AUTO) 0.42 x10^3/uL (0-0.4); EOSINOPHILS % (AUTO) 4 % (1-7); LYMPHOCYTES # (AUTO) 1.31 x10^3/uL (1-3.4); LYMPHOCYTES % (AUTO) 13 % (22-44); MD NO; MEAN CORPUSCULAR HEMOGLOBIN 26.8 pg (27.0-34.8); MEAN CORPUSCULAR HGB CONC 32.6 g/dL (32.4-35.8); MEAN CORPUSCULAR VOLUME 82.1 fL (80-100); MEAN PLATELET VOLUME 9.5 fL (7.4-10.4); MONOCYTES # (AUTO) 0.67 x10^3/uL (0.2-0.8); MONOCYTES % (AUTO) 7 % (2-9); NEUTROPHILS # (AUTO) 7.62 x10^3/uL (1.8-6.8); NEUTROPHILS % (AUTO) 75 % (42-75); PLATELET COUNT 477 x10^3/uL (130-400); RED BLOOD COUNT 3.74 x10^6/uL (3.82-5.3); RED CELL DISTRIBUTION WIDTH 15.8 % (9.6-15.2)
[2017-05-17] MEDS: RIVAROXABAN 20 MG TABLET PO SCH (05:44)
[2017-05-17] MEDS: OXYcodone IR 5MG TABLET PO PRN ×3 (05:44→21:47)
[2017-05-17 05:45] LABS: ANION GAP 9 mmol/L (5-15); CALCIUM 8.2 mg/dL (8.5-10.1); CHLORIDE 102 mmol/L (98-107); CREATININE 1.19 mg/dL (0.55-1.02)
[2017-05-17 07:20] VITALS: BP 131/82
[2017-05-17] MEDS ORDERED: FUROSEMIDE 40 MG/4 ML IV ONE (08:00)
[2017-05-17] MEDS ORDERED: ALBUMIN HUMAN 25% 100 ML IV ONE (08:00)
[2017-05-17] MEDS: DOCUSATE 100 MG CAPSULE PO SCH (09:00)
[2017-05-17] MEDS ORDERED: RIVA20TA PO (09:09)
[2017-05-17] MEDS ORDERED: INSU100I13 SQ-INSULIN (09:09)
[2017-05-17] MEDS ORDERED: AMOX-291 PO (09:14)
[2017-05-17] MEDS ORDERED: FLUC200T PO (09:15)
[2017-05-17] MEDS: INSULIN LISPRO 100 UNITS/ML, PEN SQ-INSULIN SCH ×4 (10:01→21:48)
[2017-05-17] MEDS: LOSARTAN 25MG TABLET PO SCH (10:02)
[2017-05-17] MEDS: GABAPENTIN 300 MG CAPSULE PO SCH ×3 (10:02→21:47)
[2017-05-17] MEDS: NYSTATIN TOPICAL POWDER 15GM TP SCH ×2 (10:02→21:47)
[2017-05-17] MEDS: FLUCONAZOLE 400 MG/200 ML 200 ML IV SCH (10:02)
[2017-05-17 12:20] VITALS: BP 158/73
[2017-05-17] MEDS ORDERED: FUROSEMIDE 40 MG/4 ML ONE (15:39)
[2017-05-17] MEDS ORDERED: POTASSIUM CHLORIDE 20 MEQ TAB.ER.PRT PO ONE (16:00)
[2017-05-17 21:20] VITALS: BP 147/69
[2017-05-17] MEDS: ATORVASTATIN 40 MG TABLET PO SCH (21:47)
[2017-05-17] MEDS: INSULIN GLARGINE 100 UNITS/ML, PEN SQ-INSULIN SCH (21:48)
[2017-05-18 02:08] VITALS: BP 147/47
[2017-05-18] MEDS: OXYcodone IR 5MG TABLET PO PRN ×3 (04:40→20:33)
[2017-05-18] MEDS: RIVAROXABAN 20 MG TABLET PO SCH (05:19)
[2017-05-18 06:50] VITALS: BP 145/72
[2017-05-18] MEDS: INSULIN LISPRO 100 UNITS/ML, PEN SQ-INSULIN SCH ×4 (07:00→20:53)
[2017-05-18] MEDS: LOSARTAN 25MG TABLET PO SCH (08:33)
[2017-05-18] MEDS: GABAPENTIN 300 MG CAPSULE PO SCH ×3 (08:34→20:33)
[2017-05-18] MEDS: DOCUSATE 100 MG CAPSULE PO SCH (08:34)
[2017-05-18] MEDS: NYSTATIN TOPICAL POWDER 15GM TP SCH ×2 (08:34→20:53)
[2017-05-18] MEDS: FLUCONAZOLE 400 MG/200 ML 200 ML IV SCH (08:34)
[2017-05-18 14:00] VITALS: BP 145/65
[2017-05-18 18:44] VITALS: BP 138/73
[2017-05-18] MEDS: ATORVASTATIN 40 MG TABLET PO SCH (20:33)
[2017-05-18] MEDS: AMOXICILLIN/CLAV 875-125MG TABLET PO SCH (20:33)
[2017-05-18] MEDS: INSULIN GLARGINE 100 UNITS/ML, PEN SQ-INSULIN SCH (20:52)
[2017-05-19 01:47] VITALS: BP 150/74
[2017-05-19] MEDS: OXYcodone IR 5MG TABLET PO PRN ×3 (05:13→20:03)
[2017-05-19] MEDS: RIVAROXABAN 20 MG TABLET PO SCH (05:13)
[2017-05-19 06:31] LABS: BASOPHILS # (AUTO) 0.03 x10^3/uL (0-0.1); BASOPHILS % (AUTO) 0 % (0-1); EOSINOPHILS # (AUTO) 0.37 x10^3/uL (0-0.4); EOSINOPHILS % (AUTO) 4 % (1-7); LYMPHOCYTES # (AUTO) 1.64 x10^3/uL (1-3.4); LYMPHOCYTES % (AUTO) 18 % (22-44); MD NO; MEAN CORPUSCULAR HEMOGLOBIN 26.8 pg (27.0-34.8); MEAN CORPUSCULAR HGB CONC 32.7 g/dL (32.4-35.8); MEAN CORPUSCULAR VOLUME 82.1 fL (80-100); MEAN PLATELET VOLUME 8.5 fL (7.4-10.4); MONOCYTES # (AUTO) 0.61 x10^3/uL (0.2-0.8); MONOCYTES % (AUTO) 7 % (2-9); NEUTROPHILS # (AUTO) 6.44 x10^3/uL (1.8-6.8); NEUTROPHILS % (AUTO) 71 % (42-75); PLATELET COUNT 497 x10^3/uL (130-400); RED BLOOD COUNT 3.78 x10^6/uL (3.82-5.3); RED CELL DISTRIBUTION WIDTH 15.4 % (9.6-15.2)
[2017-05-19 06:41] LABS: ALBUMIN 2.2 g/dL (3.4-5.0); ANION GAP 7 mmol/L (5-15); CALCIUM 8.8 mg/dL (8.5-10.1); CHLORIDE 101 mmol/L (98-107); CREATININE 1.09 mg/dL (0.55-1.02)
[2017-05-19] MEDS: INSULIN LISPRO 100 UNITS/ML, PEN SQ-INSULIN SCH ×4 (07:00→20:20)
[2017-05-19 08:00] VITALS: BP 149/77
[2017-05-19] MEDS: FLUCONAZOLE 200 MG TABLET PO SCH (10:34)
[2017-05-19] MEDS: NYSTATIN TOPICAL POWDER 15GM TP SCH ×2 (10:34→20:03)
[2017-05-19] MEDS: LOSARTAN 25MG TABLET PO SCH (10:34)
[2017-05-19] MEDS: AMOXICILLIN/CLAV 875-125MG TABLET PO SCH ×2 (10:34→20:02)
[2017-05-19] MEDS: DOCUSATE 100 MG CAPSULE PO SCH (10:34)
[2017-05-19] MEDS: GABAPENTIN 300 MG CAPSULE PO SCH ×3 (10:34→20:03)
[2017-05-19 14:00] VITALS: BP 150/69
[2017-05-19 18:57] VITALS: BP 152/78
[2017-05-19] MEDS: ATORVASTATIN 40 MG TABLET PO SCH (20:03)
[2017-05-19] MEDS: INSULIN GLARGINE 100 UNITS/ML, PEN SQ-INSULIN SCH (20:21)
[2017-05-20 03:44] VITALS: BP 156/74
[2017-05-20] MEDS: RIVAROXABAN 20 MG TABLET PO SCH (06:07)
[2017-05-20] MEDS: OXYcodone IR 5MG TABLET PO PRN ×3 (06:07→19:30)
[2017-05-20 06:41] VITALS: BP 144/77
[2017-05-20] MEDS: FLUCONAZOLE 200 MG TABLET PO SCH (08:38)
[2017-05-20] MEDS: GABAPENTIN 300 MG CAPSULE PO SCH ×3 (08:38→19:30)
[2017-05-20] MEDS: AMOXICILLIN/CLAV 875-125MG TABLET PO SCH ×2 (08:38→19:30)
[2017-05-20] MEDS: INSULIN LISPRO 100 UNITS/ML, PEN SQ-INSULIN SCH ×4 (08:39→20:56)
[2017-05-20] MEDS: LOSARTAN 25MG TABLET PO SCH (08:39)
[2017-05-20] MEDS: DOCUSATE 100 MG CAPSULE PO SCH (08:39)
[2017-05-20] MEDS: NYSTATIN TOPICAL POWDER 15GM TP SCH ×2 (08:39→20:55)
[2017-05-20 12:25] VITALS: BP 150/74
[2017-05-20 19:16] VITALS: BP 156/71
[2017-05-20] MEDS: ATORVASTATIN 40 MG TABLET PO SCH (19:30)
[2017-05-20] MEDS: INSULIN GLARGINE 100 UNITS/ML, PEN SQ-INSULIN SCH (20:56)
[2017-05-21 01:10] VITALS: BP 148/71
[2017-05-21] MEDS: OXYcodone IR 5MG TABLET PO PRN ×3 (04:05→18:19)
[2017-05-21 07:04] VITALS: BP 134/68
[2017-05-21] MEDS: LOSARTAN 25MG TABLET PO SCH (08:50)
[2017-05-21] MEDS: AMOXICILLIN/CLAV 875-125MG TABLET PO SCH ×2 (08:50→20:58)
[2017-05-21] MEDS: INSULIN LISPRO 100 UNITS/ML, PEN SQ-INSULIN SCH ×4 (08:50→21:21)
[2017-05-21] MEDS: DOCUSATE 100 MG CAPSULE PO SCH (08:50)
[2017-05-21] MEDS: RIVAROXABAN 20 MG TABLET PO SCH (08:50)
[2017-05-21] MEDS: GABAPENTIN 300 MG CAPSULE PO SCH ×3 (08:50→20:58)
[2017-05-21] MEDS: FLUCONAZOLE 200 MG TABLET PO SCH (08:51)
[2017-05-21] MEDS: NYSTATIN TOPICAL POWDER 15GM TP SCH ×2 (08:51→21:22)
[2017-05-21 13:05] VITALS: BP 146/77
[2017-05-21 19:15] VITALS: BP 148/69
[2017-05-21] MEDS: ATORVASTATIN 40 MG TABLET PO SCH (20:58)
[2017-05-21] MEDS: INSULIN GLARGINE 100 UNITS/ML, PEN SQ-INSULIN SCH (21:21)
[2017-05-22 02:04] VITALS: BP 152/74
[2017-05-22] MEDS: RIVAROXABAN 20 MG TABLET PO SCH (05:38)
[2017-05-22] MEDS: OXYcodone IR 5MG TABLET PO PRN ×3 (05:56→19:33)
[2017-05-22] MEDS: INSULIN LISPRO 100 UNITS/ML, PEN SQ-INSULIN SCH ×4 (07:00→21:18)
[2017-05-22 07:10] VITALS: BP 128/73
[2017-05-22] MEDS: AMOXICILLIN/CLAV 875-125MG TABLET PO SCH ×2 (09:00→21:00)
[2017-05-22] MEDS: FLUCONAZOLE 200 MG TABLET PO SCH (09:24)
[2017-05-22] MEDS: DOCUSATE 100 MG CAPSULE PO SCH (09:24)
[2017-05-22] MEDS: LOSARTAN 25MG TABLET PO SCH (09:24)
[2017-05-22] MEDS: GABAPENTIN 300 MG CAPSULE PO SCH ×3 (09:24→21:08)
[2017-05-22] MEDS: NYSTATIN TOPICAL POWDER 15GM TP SCH ×2 (09:24→22:24)
[2017-05-22] MEDS ORDERED: TIZANIDINE 4MG TABLET ONE (10:45)
[2017-05-22 14:11] VITALS: BP 146/78
[2017-05-22 19:37] VITALS: BP 138/74
[2017-05-22] MEDS: ATORVASTATIN 40 MG TABLET PO SCH (21:08)
[2017-05-22] MEDS: INSULIN GLARGINE 100 UNITS/ML, PEN SQ-INSULIN SCH (21:19)
[2017-05-23 01:16] VITALS: BP 146/74
[2017-05-23] MEDS: OXYcodone IR 5MG TABLET PO PRN ×2 (05:51→12:06)
[2017-05-23] MEDS: RIVAROXABAN 20 MG TABLET PO SCH (05:51)
[2017-05-23 06:40] VITALS: BP 146/72
[2017-05-23] MEDS: LOSARTAN 25MG TABLET PO SCH (08:32)
[2017-05-23] MEDS: DOCUSATE 100 MG CAPSULE PO SCH (08:32)
[2017-05-23] MEDS: GABAPENTIN 300 MG CAPSULE PO SCH ×2 (08:33→16:02)
[2017-05-23] MEDS: AMOXICILLIN/CLAV 875-125MG TABLET PO SCH (08:33)
[2017-05-23] MEDS: NYSTATIN TOPICAL POWDER 15GM TP SCH (08:34)
[2017-05-23] MEDS: FLUCONAZOLE 200 MG TABLET PO SCH (08:34)
[2017-05-23] MEDS: INSULIN LISPRO 100 UNITS/ML, PEN SQ-INSULIN SCH ×3 (08:42→16:10)
[2017-05-23 14:00] VITALS: BP 147/56
== END 2017-05-23 17:15 | DRG 871 ==
LOC: ED 19:00 → EDIP 20:56 → 3NE 21:58
PROVIDERS: ADMIT Hospitalist; ATTEND Hospitalist
PROC: 0T9B70Z Drainage of Bladder with Drainage Device, Via Natural or Artificial Opening (ICD-10-PCS; principal; 2017-05-05)
PROC: 0T9B70Z Drainage of Bladder with Drainage Device, Via Natural or Artificial Opening (ICD-10-PCS; 2017-05-13)
DX: A41.9 Sepsis, unspecified organism (principal); N17.0 Acute kidney failure with tubular necrosis; L89.159 Pressure ulcer of sacral region, unspecified stage; E44.0 Moderate protein-calorie malnutrition; R53.2 Functional quadriplegia; E11.65 Type 2 diabetes mellitus with hyperglycemia; E87.1 Hypo-osmolality and hyponatremia; Z68.41 Body mass index [BMI] 40.0-44.9, adult; E66.01 Morbid (severe) obesity due to excess calories; B35.4 Tinea corporis; R19.7 Diarrhea, unspecified; I10 Essential (primary) hypertension; D25.9 Leiomyoma of uterus, unspecified; F17.210 Nicotine dependence, cigarettes, uncomplicated; R62.7 Adult failure to thrive; Z66 Do not resuscitate; Z68.37 Body mass index [BMI] 37.0-37.9, adult; Z79.01 Long term (current) use of anticoagulants; Z82.49 Family history of ischemic heart disease and other diseases of the circulatory system; Z86.718 Personal history of other venous thrombosis and embolism; Z86.711 Personal history of pulmonary embolism; Z90.49 Acquired absence of other specified parts of digestive tract
CPT/HCPCS: 36415; 70450; 71045; 74176; 80048; 80053; 81001; 81003; 82040; 82962; 83036; 83735; 84100; 85025; 85651; 86140; 87040; 87070; 87077; 87086; 87106; 87186; 87205; 87400; 93005; 99285; J0295; J0696; J1450; J1940; J2020; J2543; J3370; P9047; J1815; J3475; J7030; J7040

== ENCOUNTER 2017-07-01 21:21 | Inpatient (IN) | payer OTHER ==
[~2017-07-01] VITALS: Ht 167.6 cm; Wt 96.6 kg
[~2017-07-01 21:21] MED LIST changes: +AMOX-291 PO; +FLUC200T PO; +PIPE4.5V3 IV; +RIVA20TA PO
[2017-07-01] MEDS ORDERED: [UNRECOGNIZED DRUG - OTHER] PO (21:28)
[2017-07-01] MEDS ORDERED: PANTOPRAZOLE 80 MG in SODIUM CHLORIDE 0.9% 100 ML IV SCH (21:28)
[2017-07-01] MEDS ORDERED: PANTOPRAZOLE 40 MG IV IVPush ONE (21:30)
[2017-07-01] MEDS ORDERED: SODIUM CHLORIDE FLUSH 10ML SYR IVF ONE (21:30)
[2017-07-01 21:47] LABS: BASOPHILS # (AUTO) 0.02 x10^3/uL (0-0.1); BASOPHILS % (AUTO) 0 % (0-1); EOSINOPHILS # (AUTO) 0.02 x10^3/uL (0-0.4); EOSINOPHILS % (AUTO) 0 % (1-7); LYMPHOCYTES # (AUTO) 1.04 x10^3/uL (1-3.4); LYMPHOCYTES % (AUTO) 10 % (22-44); MD NO; MEAN CORPUSCULAR HEMOGLOBIN 25.5 pg (27.0-34.8); MEAN CORPUSCULAR HGB CONC 31.9 g/dL (32.4-35.8); MEAN CORPUSCULAR VOLUME 79.7 fL (80-100); MEAN PLATELET VOLUME 10.1 fL (7.4-10.4); MONOCYTES # (AUTO) 0.26 x10^3/uL (0.2-0.8); MONOCYTES % (AUTO) 3 % (2-9); NEUTROPHILS # (AUTO) 9.23 x10^3/uL (1.8-6.8); NEUTROPHILS % (AUTO) 87 % (42-75); PLATELET COUNT 419 x10^3/uL (130-400); RED BLOOD COUNT 5.11 x10^6/uL (3.82-5.3); RED CELL DISTRIBUTION WIDTH 19.7 % (9.6-15.2)
[2017-07-01 21:54] LABS: INTERNATIONAL NORMALIZED RATIO 1.21 (0.93-1.1); PROTHROMBIN TIME 12.4 Seconds (9.6-11.5)
[2017-07-01 21:57] LABS: ALANINE AMINOTRANSFERASE 21 U/L (12-78); ALBUMIN 3.1 g/dL (3.4-5.0); ANION GAP 13 mmol/L (5-15); CALCIUM 9.2 mg/dL (8.5-10.1); CHLORIDE 103 mmol/L (98-107)
[2017-07-01 21:59] LABS: ALKALINE PHOSPHATASE 102 U/L (45-117); BILIRUBIN,TOTAL 0.9 mg/dL (0.2-1.0)
[2017-07-01] MEDS ORDERED: SODIUM CHLORIDE 0.9% 1,000 ML IV SCH (23:04)
[2017-07-01] MEDS ORDERED: ONDANSETRON 2MG/ML, 2ML IVPush PRN (23:30)
[2017-07-01 23:37] LABS: % IRON SATURATION 15 % (20-55); IRON LEVEL 40 mcg/dL (50-170); TOTAL IRON BINDING CAPACITY 265 mcg/dL (250-450)
[2017-07-01 23:59] VITALS: BP 125/75
[2017-07-02 03:23] VITALS: BP_SYST 178; BP_SYST 187; BP_DIAS 102; BP_DIAS 96
[2017-07-02] MEDS ORDERED: ONDANSETRON ODT 4 MG PO PRN (03:30)
[2017-07-02] MEDS ORDERED: hydrALAzine 20 MG/ML, 1ML IV PRN (04:00)
[2017-07-02] MEDS ORDERED: PANTOPRAZOLE 40 MG IV IVPush SCH (07:30)
[2017-07-02 08:10] VITALS: BP 144/75
[2017-07-02] MEDS ORDERED: IRON SUCROSE COMPLEX 100MG/5ML IV SCH (09:00)
[2017-07-02] MEDS: INSULIN LISPRO 100 UNITS/ML, PEN SQ-INSULIN SCH ×4 (10:41→21:21)
[2017-07-02 13:39] VITALS: BP 138/74
[2017-07-02] MEDS: ACETAMINOPHEN 325 MG TABLET PO PRN (13:48)
[2017-07-02 20:00] VITALS: BP 125/70
[2017-07-03 01:15] VITALS: BP 122/70
[2017-07-03 07:06] LABS: BASOPHILS # (AUTO) 0.04 x10^3/uL (0-0.1); BASOPHILS % (AUTO) 1 % (0-1); EOSINOPHILS % (AUTO) 5 % (1-7); LYMPHOCYTES # (AUTO) 2.34 x10^3/uL (1-3.4); LYMPHOCYTES % (AUTO) 30 % (22-44); MD NO; MEAN CORPUSCULAR HEMOGLOBIN 25.8 pg (27.0-34.8); MEAN CORPUSCULAR HGB CONC 31.8 g/dL (32.4-35.8); MEAN CORPUSCULAR VOLUME 81.1 fL (80-100); MEAN PLATELET VOLUME 9.6 fL (7.4-10.4); MONOCYTES # (AUTO) 0.53 x10^3/uL (0.2-0.8); MONOCYTES % (AUTO) 7 % (2-9); NEUTROPHILS % (AUTO) 58 % (42-75); PLATELET COUNT 320 x10^3/uL (130-400); RED BLOOD COUNT 4.78 x10^6/uL (3.82-5.3); RED CELL DISTRIBUTION WIDTH 20.1 % (9.6-15.2)
[2017-07-03 07:29] LABS: ALANINE AMINOTRANSFERASE 19 U/L (12-78); ALBUMIN 2.6 g/dL (3.4-5.0); ANION GAP 9 mmol/L (5-15); CALCIUM 8.1 mg/dL (8.5-10.1); CHLORIDE 104 mmol/L (98-107); CREATININE 1.21 mg/dL (0.55-1.02)
[2017-07-03 07:31] LABS: ALKALINE PHOSPHATASE 85 U/L (45-117); BILIRUBIN,TOTAL 0.9 mg/dL (0.2-1.0)
[2017-07-03 07:40] VITALS: BP 136/71
[2017-07-03] MEDS: PANTOPROZOLE 40MG TABLET PO SCH (08:05)
[2017-07-03] MEDS: INSULIN LISPRO 100 UNITS/ML, PEN SQ-INSULIN SCH ×3 (08:24→16:00)
[2017-07-03] MEDS ORDERED: FENTANYL PF 100 MCG/2ML ONE (13:58)
[2017-07-03] MEDS ORDERED: MIDAZOLAM 1 MG/ML, 5ML ONE (13:59)
[2017-07-03] MEDS ORDERED: PROPOFOL 10 MG/ML, 20ML ONE (14:20)
[2017-07-03] MEDS ORDERED: morphine SULFATE 10 MG/ML, 1ML IV PRN (15:00)
[2017-07-03] MEDS ORDERED: MEPERIDINE/PF 25MG/0.5ML IVPush PRN (15:00)
[2017-07-03] MEDS ORDERED: FENTANYL PF 100 MCG/2ML IV PRN (15:00)
[2017-07-03] MEDS ORDERED: LABETALOL 5MG/ML, 20ML IV PRN (15:00)
[2017-07-03] MEDS ORDERED: hydrALAzine 20 MG/ML, 1ML IV PRN (15:00)
[2017-07-03] MEDS ORDERED: OXYcodone 5 MG/5 ML ORAL.SOL UDC PO PRN (15:00)
[2017-07-03] MEDS ORDERED: ACETAMINOPHEN 325 MG TABLET PO PRN (15:00)
[2017-07-03 15:30] VITALS: BP 150/70
[2017-07-03 19:28] VITALS: BP 145/69
[2017-07-04] MEDS: INSULIN LISPRO 100 UNITS/ML, PEN SQ-INSULIN SCH ×3 (00:12→11:00)
[2017-07-04 02:37] VITALS: BP 131/62
[2017-07-04 04:36] LABS: BASOPHILS # (AUTO) 0.06 x10^3/uL (0-0.1); BASOPHILS % (AUTO) 1 % (0-1); EOSINOPHILS # (AUTO) 0.52 x10^3/uL (0-0.4); EOSINOPHILS % (AUTO) 6 % (1-7); LYMPHOCYTES # (AUTO) 2.06 x10^3/uL (1-3.4); LYMPHOCYTES % (AUTO) 22 % (22-44); MD NO; MEAN CORPUSCULAR HEMOGLOBIN 26.1 pg (27.0-34.8); MEAN CORPUSCULAR HGB CONC 32.4 g/dL (32.4-35.8); MEAN CORPUSCULAR VOLUME 80.7 fL (80-100); MONOCYTES # (AUTO) 0.54 x10^3/uL (0.2-0.8); MONOCYTES % (AUTO) 6 % (2-9); NEUTROPHILS # (AUTO) 6.32 x10^3/uL (1.8-6.8); NEUTROPHILS % (AUTO) 67 % (42-75); PLATELET COUNT 345 x10^3/uL (130-400); RED BLOOD COUNT 4.42 x10^6/uL (3.82-5.3); RED CELL DISTRIBUTION WIDTH 18.8 % (9.6-15.2)
[2017-07-04 04:47] LABS: ALBUMIN 2.8 g/dL (3.4-5.0); ANION GAP 9 mmol/L (5-15); CHLORIDE 104 mmol/L (98-107)
[2017-07-04 04:51] LABS: ALANINE AMINOTRANSFERASE 21 U/L (12-78); ALKALINE PHOSPHATASE 84 U/L (45-117); CREATININE 1.01 mg/dL (0.55-1.02); TOTAL PROTEIN 6.9 g/dL (6.4-8.2)
[2017-07-04] MEDS ORDERED: RIVAROXABAN 20 MG TABLET PO SCH (07:00)
[2017-07-04 07:35] VITALS: BP 164/79
[2017-07-04] MEDS: PANTOPROZOLE 40MG TABLET PO SCH (07:58)
[2017-07-04] MEDS ORDERED: CIPROFLOXACIN OPHTH SOLN 0.3%, 5ML EACHEYE SCH (09:00)
[2017-07-04] MEDS: ACETAMINOPHEN 325 MG TABLET PO PRN (09:57)
[2017-07-04] MEDS ORDERED: CIPR2.5D EACHEYE (10:16)
[2017-07-04] MEDS ORDERED: PANT40TA5 PO (10:16)
[2017-07-04 14:02] VITALS: BP 143/79
== END 2017-07-04 17:30 | DRG 368 ==
LOC: ED 21:50 → SUATTDRO 23:03 → EDIP 23:04 → 3NW 23:45
PROVIDERS: ADMIT Hospitalist; ATTEND Hospitalist
PROC: 0DJ08ZZ Inspection of Upper Intestinal Tract, Via Natural or Artificial Opening Endoscopic (ICD-10-PCS; principal; 2017-07-03 14:30)
DX: K22.6 Gastro-esophageal laceration-hemorrhage syndrome (principal); I26.92 Saddle embolus of pulmonary artery without acute cor pulmonale; L89.159 Pressure ulcer of sacral region, unspecified stage; E44.0 Moderate protein-calorie malnutrition; D68.9 Coagulation defect, unspecified; E11.42 Type 2 diabetes mellitus with diabetic polyneuropathy; E66.01 Morbid (severe) obesity due to excess calories; D63.8 Anemia in other chronic diseases classified elsewhere; K92.0 Hematemesis; K22.2 Esophageal obstruction; I10 Essential (primary) hypertension; E78.5 Hyperlipidemia, unspecified; D72.829 Elevated white blood cell count, unspecified; E61.1 Iron deficiency; E87.6 Hypokalemia; H10.9 Unspecified conjunctivitis; K21.0 Gastro-esophageal reflux disease with esophagitis; K44.9 Diaphragmatic hernia without obstruction or gangrene; R79.89 Other specified abnormal findings of blood chemistry; Z79.01 Long term (current) use of anticoagulants; Z79.4 Long term (current) use of insulin; Z86.711 Personal history of pulmonary embolism; Z86.718 Personal history of other venous thrombosis and embolism; Z87.891 Personal history of nicotine dependence; Z68.34 Body mass index [BMI] 34.0-34.9, adult
CPT/HCPCS: 36415; 80053; 82728; 82962; 83540; 83550; 83690; 85025; 85610; 85730; 86850; 86900; 93005; 99285; J1756; J2250; J2704; J3010; Q0162; C9113; J0360; J1815; J7030

== ENCOUNTER 2017-08-01 10:36 | Inpatient (IN) | payer OTHER ==
[~2017-08-01] VITALS: Ht 167.6 cm; Wt 104.8 kg
[~2017-08-01 10:36] MED LIST changes: +CIPR2.5D EACHEYE; +PANT40TA5 PO; +[UNRECOGNIZED DRUG - OTHER] PO
[2017-08-01] MEDS ORDERED: METF500T4 PO (10:52)
[2017-08-01] MEDS ORDERED: SODIUM CHLORIDE 0.9% 1,000 ML IV ONE (11:09)
[2017-08-01] MEDS ORDERED: SODIUM CHLORIDE FLUSH 10ML SYR IVF ONE (11:30)
[2017-08-01 11:44] LABS: BASOPHILS # (AUTO) 0.03 x10^3/uL (0-0.1); BASOPHILS % (AUTO) 1 % (0-1); EOSINOPHILS # (AUTO) 0.09 x10^3/uL (0-0.4); EOSINOPHILS % (AUTO) 1 % (1-7); LYMPHOCYTES # (AUTO) 1.73 x10^3/uL (1-3.4); LYMPHOCYTES % (AUTO) 24 % (22-44); MD NO; MEAN CORPUSCULAR HEMOGLOBIN 26.4 pg (27.0-34.8); MEAN CORPUSCULAR HGB CONC 32.7 g/dL (32.4-35.8); MEAN CORPUSCULAR VOLUME 80.7 fL (80-100); MEAN PLATELET VOLUME 9.5 fL (7.4-10.4); MONOCYTES # (AUTO) 0.48 x10^3/uL (0.2-0.8); MONOCYTES % (AUTO) 7 % (2-9); NEUTROPHILS # (AUTO) 4.79 x10^3/uL (1.8-6.8); NEUTROPHILS % (AUTO) 67 % (42-75); PLATELET COUNT 406 x10^3/uL (130-400); RED BLOOD COUNT 4.53 x10^6/uL (3.82-5.3); RED CELL DISTRIBUTION WIDTH 19.9 % (9.6-15.2)
[2017-08-01 11:52] LABS: INTERNATIONAL NORMALIZED RATIO 1.08 (0.93-1.1); PROTHROMBIN TIME 11.2 Seconds (9.6-11.5)
[2017-08-01 11:55] LABS: ALANINE AMINOTRANSFERASE 17 U/L (12-78); ALBUMIN 3.1 g/dL (3.4-5.0); ANION GAP 11 mmol/L (5-15); CALCIUM 8.4 mg/dL (8.5-10.1); CHLORIDE 106 mmol/L (98-107)
[2017-08-01 11:58] LABS: ALKALINE PHOSPHATASE 87 U/L (45-117); CREATINE KINASE, TOTAL 53 U/L (26-192); CREATININE 1.17 mg/dL (0.55-1.02); TOTAL PROTEIN 7.8 g/dL (6.4-8.2)
[2017-08-01 12:27] LABS: MICROSCOPIC INDICATED
[2017-08-01 12:28] LABS: CULTURE INDICATED? YES
[2017-08-01] MEDS ORDERED: SODIUM CHLORIDE FLUSH 10ML SYR IVF PRN (13:30)
[2017-08-01] MEDS ORDERED: INSULIN SQ ×2 (13:56)
[2017-08-01] MEDS ORDERED: ACETAMINOPHEN 325 MG TABLET PO PRN (14:30)
[2017-08-01] MEDS ORDERED: GUAIFENESIN/COD200MG-20MG/10ML LIQUID PO PRN (14:30)
[2017-08-01] MEDS ORDERED: DOCUSATE 100 MG CAPSULE PO PRN (14:30)
[2017-08-01] MEDS ORDERED: ONDANSETRON 2MG/ML, 2ML IVPush PRN (14:30)
[2017-08-01] MEDS ORDERED: TRAZODONE 50MG TABLET PO PRN (14:30)
[2017-08-01] MEDS ORDERED: hydrALAzine 20 MG/ML, 1ML IVPush PRN (14:30)
[2017-08-01 15:13] VITALS: BP 148/85
[2017-08-01] MEDS: INSULIN LISPRO 100 UNITS/ML, PEN SQ-INSULIN SCH ×2 (16:00→21:21)
[2017-08-01] MEDS: GABAPENTIN 300 MG CAPSULE PO SCH ×2 (17:03→20:13)
[2017-08-01] MEDS: SODIUM CHLORIDE 0.9% 1,000 ML IV SCH (17:03)
[2017-08-01 19:01] VITALS: BP 147/72
[2017-08-01] MEDS: ATORVASTATIN 40 MG TABLET PO SCH (20:13)
[2017-08-01] MEDS: metFORMIN 500 MG TABLET PO SCH (20:13)
[2017-08-01] MEDS: INSULIN GLARGINE 100 UNITS/ML, PEN SQ-INSULIN SCH (21:21)
[2017-08-01] MEDS: HYDROcodone/APAP 5/325 TABLET PO PRN (22:36)
[2017-08-02 00:22] VITALS: BP 121/59
[2017-08-02] MEDS: SODIUM CHLORIDE 0.9% 1,000 ML IV SCH ×2 (04:51→18:37)
[2017-08-02 05:33] LABS: BASOPHILS # (AUTO) 0.04 x10^3/uL (0-0.1); BASOPHILS % (AUTO) 1 % (0-1); EOSINOPHILS # (AUTO) 0.38 x10^3/uL (0-0.4); EOSINOPHILS % (AUTO) 6 % (1-7); LYMPHOCYTES # (AUTO) 2.08 x10^3/uL (1-3.4); LYMPHOCYTES % (AUTO) 31 % (22-44); MD NO; MEAN CORPUSCULAR HEMOGLOBIN 27.1 pg (27.0-34.8); MEAN CORPUSCULAR HGB CONC 32.8 g/dL (32.4-35.8); MEAN CORPUSCULAR VOLUME 82.6 fL (80-100); MEAN PLATELET VOLUME 9.7 fL (7.4-10.4); MONOCYTES # (AUTO) 0.48 x10^3/uL (0.2-0.8); MONOCYTES % (AUTO) 7 % (2-9); NEUTROPHILS # (AUTO) 3.76 x10^3/uL (1.8-6.8); NEUTROPHILS % (AUTO) 56 % (42-75); PLATELET COUNT 357 x10^3/uL (130-400); RED BLOOD COUNT 4.21 x10^6/uL (3.82-5.3); RED CELL DISTRIBUTION WIDTH 19.6 % (9.6-15.2)
[2017-08-02] MEDS: RIVAROXABAN 20 MG TABLET PO SCH (05:38)
[2017-08-02] MEDS: HYDROcodone/APAP 5/325 TABLET PO PRN ×4 (05:38→20:20)
[2017-08-02 05:48] LABS: ANION GAP 7 mmol/L (5-15); CHLORIDE 109 mmol/L (98-107)
[2017-08-02 05:59] LABS: CREATININE 1.02 mg/dL (0.55-1.02)
[2017-08-02] MEDS: INSULIN LISPRO 100 UNITS/ML, PEN SQ-INSULIN SCH ×4 (07:00→20:23)
[2017-08-02 07:33] VITALS: BP 137/85
[2017-08-02] MEDS: GABAPENTIN 300 MG CAPSULE PO SCH ×3 (07:40→20:16)
[2017-08-02] MEDS: LOSARTAN 25MG TABLET PO SCH (07:40)
[2017-08-02] MEDS: metFORMIN 500 MG TABLET PO SCH ×2 (07:40→20:16)
[2017-08-02] MEDS ORDERED: MAGNESIUM SULFATE PMX 4GM/100M 100 ML IV ONE (09:00)
[2017-08-02] MEDS: POTASSIUM CHLORIDE 20 MEQ TAB.ER.PRT PO SCH ×2 (10:10→14:23)
[2017-08-02] MEDS ORDERED: ACETAMINOPHEN 325 MG TABLET PO PRN (10:30)
[2017-08-02 13:58] VITALS: BP 135/69
[2017-08-02] MEDS: ATORVASTATIN 40 MG TABLET PO SCH (20:16)
[2017-08-02] MEDS: INSULIN GLARGINE 100 UNITS/ML, PEN SQ-INSULIN SCH (20:23)
[2017-08-02 20:59] VITALS: BP 145/75
[2017-08-03 01:44] VITALS: BP 146/74
[2017-08-03] MEDS: HYDROcodone/APAP 5/325 TABLET PO PRN ×3 (02:18→15:55)
[2017-08-03] MEDS: SODIUM CHLORIDE 0.9% 1,000 ML IV SCH ×2 (04:18→14:00)
[2017-08-03] MEDS: RIVAROXABAN 20 MG TABLET PO SCH (06:05)
[2017-08-03] MEDS: INSULIN LISPRO 100 UNITS/ML, PEN SQ-INSULIN SCH ×2 (07:00→11:00)
[2017-08-03 09:14] VITALS: BP 155/75
[2017-08-03] MEDS: metFORMIN 500 MG TABLET PO SCH (09:27)
[2017-08-03] MEDS: LOSARTAN 25MG TABLET PO SCH (09:28)
[2017-08-03] MEDS: GABAPENTIN 300 MG CAPSULE PO SCH (09:28)
[2017-08-03 12:53] VITALS: BP 148/79
[2017-08-03] MEDS ORDERED: INSU100I13 SQ (13:01)
== END 2017-08-03 16:14 | disposition hospice, home (50) | DRG 592 ==
LOC: ED 13:02 → EDIP 13:03 → ED 13:52 → 3NE 15:02
PROVIDERS: ADMIT Internal Medicine Pulmonary Disease; ATTEND Internal Medicine Pulmonary Disease
PROC: 0T9B70Z Drainage of Bladder with Drainage Device, Via Natural or Artificial Opening (ICD-10-PCS; principal; 2017-08-01)
DX: L89.152 Pressure ulcer of sacral region, stage 2 (principal); R53.2 Functional quadriplegia; D68.69 Other thrombophilia; E11.9 Type 2 diabetes mellitus without complications; E66.01 Morbid (severe) obesity due to excess calories; E86.0 Dehydration; Z79.4 Long term (current) use of insulin; E78.5 Hyperlipidemia, unspecified; I10 Essential (primary) hypertension; Z86.711 Personal history of pulmonary embolism; Z87.891 Personal history of nicotine dependence; Z79.01 Long term (current) use of anticoagulants; Z66 Do not resuscitate; Z96.612 Presence of left artificial shoulder joint; R53.1 Weakness; R62.7 Adult failure to thrive; Z51.5 Encounter for palliative care; Z68.37 Body mass index [BMI] 37.0-37.9, adult
CPT/HCPCS: 36415; 71045; 80048; 80053; 81001; 82550; 82962; 83605; 83735; 84443; 85025; 85610; 85730; 87040; 87086; 93005; 96361; 96365; J1815; J3475; J7030

== ENCOUNTER 2018-01-07 21:20 | Inpatient (IN) | payer OTHER ==
[~2018-01-07] VITALS: Ht 167.6 cm; Wt 107.5 kg
[~2018-01-07 21:20] MED LIST changes: -AMLO5TAB2 PO; +AMLO5TAB7 PO; +INSU100I13 SQ; +INSULIN SQ; -LOSA25TA5 PO; +LOSA25TA6 PO; +METF500T17 PO; -ONDA4VIA4 IVPush; +ONDA4VIA8 IVPush
[2018-01-07] MEDS ORDERED: SODIUM CHLORIDE FLUSH 10ML SYR IVF ONE (22:00)
[2018-01-07 22:36] LABS: BASOPHILS # (AUTO) 0.08 x10^3/uL (0-0.1); BASOPHILS % (AUTO) 1 % (0-1); EOSINOPHILS # (AUTO) 0.35 x10^3/uL (0-0.4); EOSINOPHILS % (AUTO) 4 % (1-7); LYMPHOCYTES # (AUTO) 1.46 x10^3/uL (1-3.4); LYMPHOCYTES % (AUTO) 16 % (22-44); MD NO; MEAN CORPUSCULAR HEMOGLOBIN 28.5 pg (27.0-34.8); MEAN CORPUSCULAR HGB CONC 33.2 g/dL (32.4-35.8); MEAN CORPUSCULAR VOLUME 85.8 fL (80-100); MEAN PLATELET VOLUME 10.4 fL (7.4-10.4); MONOCYTES # (AUTO) 0.52 x10^3/uL (0.2-0.8); MONOCYTES % (AUTO) 6 % (2-9); NEUTROPHILS # (AUTO) 6.84 x10^3/uL (1.8-6.8); NEUTROPHILS % (AUTO) 74 % (42-75); PLATELET COUNT 235 x10^3/uL (130-400)
[2018-01-07] MEDS ORDERED: FLUCONAZOLE 100 MG TABLET ONE (22:39)
[2018-01-07 22:46] LABS: INTERNATIONAL NORMALIZED RATIO 0.99 (0.93-1.1); PROTHROMBIN TIME 10.3 Seconds (9.6-11.5)
[2018-01-07 22:47] LABS: ALANINE AMINOTRANSFERASE 17 U/L (12-78); ALBUMIN 3.2 g/dL (3.4-5.0); ANION GAP 11 mmol/L (5-15); CALCIUM 8.9 mg/dL (8.5-10.1); CHLORIDE 101 mmol/L (98-107); CREATININE 3.41 mg/dL (0.55-1.02)
[2018-01-07 22:49] LABS: MICROSCOPIC INDICATED
[2018-01-07 22:50] LABS: ALKALINE PHOSPHATASE 80 U/L (45-117); BILIRUBIN,TOTAL 0.5 mg/dL (0.2-1.0); TOTAL PROTEIN 7.3 g/dL (6.4-8.2)
[2018-01-07] MEDS ORDERED: FLUCONAZOLE 200 MG TABLET PO ONE (23:00)
[2018-01-07 23:09] LABS: CULTURE INDICATED? NO
[2018-01-07] MEDS ORDERED: ASPIRIN 325 MG TABLET ONE (23:51)
[2018-01-08] MEDS ORDERED: SODIUM CHLORIDE 0.9% 1,000ML IVBOLUS ONE
[2018-01-08] MEDS ORDERED: ASPIRIN 325 MG TABLET PO ONE
[2018-01-08] MEDS ORDERED: TEMAZEPAM 15 MG CAPSULE PO PRN (00:30)
[2018-01-08] MEDS ORDERED: ACETAMINOPHEN 325 MG TABLET PO PRN (00:30)
[2018-01-08] MEDS ORDERED: ONDANSETRON ODT 4 MG PO PRN (00:30)
[2018-01-08] MEDS ORDERED: hydrALAzine 20 MG/ML, 1ML IVPush PRN (00:30)
[2018-01-08] MEDS ORDERED: DOCUSATE 100 MG CAPSULE PO PRN (00:30)
[2018-01-08] MEDS ORDERED: SODIUM CHLORIDE 0.9% 1,000 ML IV SCH (00:38)
[2018-01-08] MEDS: ATORVASTATIN 40 MG TABLET PO SCH ×2 (01:32→20:06)
[2018-01-08 02:00] VITALS: BP 107/65
[2018-01-08] MEDS: INSULIN GLARGINE 100 UNITS/ML, PEN SQ-INSULIN SCH ×2 (02:15→20:07)
[2018-01-08 06:05] LABS: ANION GAP 11 mmol/L (5-15); CALCIUM 8.4 mg/dL (8.5-10.1); CHLORIDE 106 mmol/L (98-107)
[2018-01-08 06:06] LABS: CREATININE 3.26 mg/dL (0.55-1.02)
[2018-01-08] MEDS: INSULIN REGULAR 100 UNITS/ML, 3ML VIAL SQ-INSULIN SCH ×4 (07:55→20:07)
[2018-01-08 08:33] VITALS: BP 103/60
[2018-01-08] MEDS ORDERED: LOSARTAN 25MG TABLET PO SCH (09:00)
[2018-01-08] MEDS: ASPIRIN 81 MG TABLET CHEW PO/NG SCH (09:27)
[2018-01-08] MEDS ORDERED: LORazepam 2 MG/ML, 1ML IVPush ONE (12:30)
[2018-01-08 13:08] VITALS: BP 126/75
[2018-01-08 18:45] VITALS: BP 109/55
[2018-01-08] MEDS: SODIUM CHLORIDE 0.9% 1,000 ML IV SCH (20:07)
[2018-01-08] MEDS ORDERED: ERGOCALCIFEROL 50,000 UNIT CAPSULE PO SCH (21:30)
[2018-01-08] MEDS: CYANOCOBALAMIN 1,000 MCG/ML, 1ML IM SCH (22:14)
[2018-01-09 01:48] VITALS: BP 156/91
[2018-01-09] MEDS: SODIUM CHLORIDE 0.9% 1,000 ML IV SCH (04:08)
[2018-01-09 05:15] LABS: BASOPHILS # (AUTO) 0.03 x10^3/uL (0-0.1); BASOPHILS % (AUTO) 0 % (0-1); EOSINOPHILS # (AUTO) 0.37 x10^3/uL (0-0.4); EOSINOPHILS % (AUTO) 5 % (1-7); LYMPHOCYTES # (AUTO) 1.57 x10^3/uL (1-3.4); LYMPHOCYTES % (AUTO) 23 % (22-44); MD NO; MEAN CORPUSCULAR HEMOGLOBIN 28.6 pg (27.0-34.8); MEAN CORPUSCULAR HGB CONC 33.3 g/dL (32.4-35.8); MEAN PLATELET VOLUME 10.2 fL (7.4-10.4); MONOCYTES # (AUTO) 0.44 x10^3/uL (0.2-0.8); MONOCYTES % (AUTO) 6 % (2-9); NEUTROPHILS # (AUTO) 4.54 x10^3/uL (1.8-6.8); NEUTROPHILS % (AUTO) 65 % (42-75); PLATELET COUNT 232 x10^3/uL (130-400); RED BLOOD COUNT 4.38 x10^6/uL (3.82-5.3); RED CELL DISTRIBUTION WIDTH 13.7 % (9.6-15.2)
[2018-01-09 05:21] LABS: ANION GAP 7 mmol/L (5-15); CALCIUM 8.3 mg/dL (8.5-10.1); CHLORIDE 108 mmol/L (98-107)
[2018-01-09 05:25] LABS: CHOL/HDL RATIO 5.1; CHOLESTEROL, TOTAL 154 mg/dL (140-239); CREATININE 2.54 mg/dL (0.55-1.02); HDL CHOL % 19 % (28-40); HDL CHOLESTEROL (DIRECT) 30 mg/dL (40-60); LDL CHOLESTEROL,CALCULATED 99 mg/dL (54-169); LDL/HDL RATIO 3.3 (0.5-3.0); TRIGLYCERIDES 127 mg/dL (50-200); VLDL CHOLESTEROL 25 mg/dL (0-25)
[2018-01-09] MEDS: INSULIN REGULAR 100 UNITS/ML, 3ML VIAL SQ-INSULIN SCH ×4 (07:00→20:31)
[2018-01-09 09:34] VITALS: BP 156/82
[2018-01-09] MEDS: ASPIRIN 81 MG TABLET CHEW PO/NG SCH (09:40)
[2018-01-09 12:42] VITALS: BP 153/86
[2018-01-09 13:10] LABS: CREATININE,URINE RANDOM 40.8 mg/dL
[2018-01-09] MEDS: HEPARIN 5,000 UNITS/ML, 1ML SQ SCH (17:04)
[2018-01-09 19:38] VITALS: BP 158/78
[2018-01-09] MEDS: ATORVASTATIN 40 MG TABLET PO SCH (20:30)
[2018-01-09] MEDS: CYANOCOBALAMIN 1,000 MCG/ML, 1ML IM SCH (20:30)
[2018-01-09] MEDS: INSULIN GLARGINE 100 UNITS/ML, PEN SQ-INSULIN SCH (20:31)
[2018-01-10] MEDS: SODIUM CHLORIDE 0.9% 1,000 ML IV SCH ×4 (00:30→21:11)
[2018-01-10] MEDS: HEPARIN 5,000 UNITS/ML, 1ML SQ SCH ×3 (00:34→16:41)
[2018-01-10 03:15] VITALS: BP 139/71
[2018-01-10 05:27] LABS: ALBUMIN 2.8 g/dL (3.4-5.0); ANION GAP 8 mmol/L (5-15); CHLORIDE 108 mmol/L (98-107); CREATININE 2.08 mg/dL (0.55-1.02)
[2018-01-10] MEDS: INSULIN REGULAR 100 UNITS/ML, 3ML VIAL SQ-INSULIN SCH ×4 (07:00→22:08)
[2018-01-10 08:00] VITALS: BP 146/86
[2018-01-10 13:54] VITALS: BP 153/75
[2018-01-10 20:31] VITALS: BP 167/81
[2018-01-10] MEDS: ATORVASTATIN 40 MG TABLET PO SCH (21:09)
[2018-01-10] MEDS: INSULIN GLARGINE 100 UNITS/ML, PEN SQ-INSULIN SCH (21:10)
[2018-01-10] MEDS: CYANOCOBALAMIN 1,000 MCG/ML, 1ML IM SCH (21:10)
[2018-01-11 00:59] VITALS: BP 167/83
[2018-01-11] MEDS: HEPARIN 5,000 UNITS/ML, 1ML SQ SCH ×3 (01:27→16:30)
[2018-01-11] MEDS: SODIUM CHLORIDE 0.9% 1,000 ML IV SCH (04:14)
[2018-01-11] MEDS: INSULIN REGULAR 100 UNITS/ML, 3ML VIAL SQ-INSULIN SCH ×3 (07:00→16:30)
[2018-01-11 08:45] VITALS: BP 162/85
[2018-01-11] MEDS ORDERED: CYANOCOBALAMIN 1,000 MCG TABLET PO SCH (09:00)
[2018-01-11 09:35] LABS: BASOPHILS # (AUTO) 0.03 x10^3/uL (0-0.1); BASOPHILS % (AUTO) 1 % (0-1); EOSINOPHILS # (AUTO) 0.25 x10^3/uL (0-0.4); EOSINOPHILS % (AUTO) 4 % (1-7); LYMPHOCYTES # (AUTO) 1.22 x10^3/uL (1-3.4); LYMPHOCYTES % (AUTO) 18 % (22-44); MD NO; MEAN CORPUSCULAR HEMOGLOBIN 28.3 pg (27.0-34.8); MEAN CORPUSCULAR HGB CONC 32.9 g/dL (32.4-35.8); MEAN CORPUSCULAR VOLUME 85.9 fL (80-100); MEAN PLATELET VOLUME 9.9 fL (7.4-10.4); MONOCYTES # (AUTO) 0.28 x10^3/uL (0.2-0.8); MONOCYTES % (AUTO) 4 % (2-9); NEUTROPHILS # (AUTO) 5.05 x10^3/uL (1.8-6.8); NEUTROPHILS % (AUTO) 74 % (42-75); PLATELET COUNT 241 x10^3/uL (130-400); RED CELL DISTRIBUTION WIDTH 13.2 % (9.6-15.2)
[2018-01-11 09:43] LABS: ANION GAP 10 mmol/L (5-15); CALCIUM 8.4 mg/dL (8.5-10.1); CHLORIDE 109 mmol/L (98-107); CREATININE 1.92 mg/dL (0.55-1.02)
[2018-01-11 09:45] LABS: CREATINE KINASE, TOTAL 105 U/L (26-192)
[2018-01-11] MEDS ORDERED: ERGO500017 PO (11:41)
[2018-01-11 13:45] VITALS: BP 154/82
== END 2018-01-11 18:00 | disposition home health service (06) | DRG 64 ==
LOC: ED 23:53 → EDIP 23:54 → 4EST 01-08 00:26
PROVIDERS: ADMIT Internal Medicine; ATTEND Internal Medicine
PROC: 0T9B70Z Drainage of Bladder with Drainage Device, Via Natural or Artificial Opening (ICD-10-PCS; principal; 2018-01-07)
DX: I63.9 Cerebral infarction, unspecified (principal); R53.2 Functional quadriplegia; N17.9 Acute kidney failure, unspecified; R53.1 Weakness; E11.622 Type 2 diabetes mellitus with other skin ulcer; E53.8 Deficiency of other specified B group vitamins; E55.9 Vitamin D deficiency, unspecified; Z68.38 Body mass index [BMI] 38.0-38.9, adult; E66.01 Morbid (severe) obesity due to excess calories; Z66 Do not resuscitate; Z96.612 Presence of left artificial shoulder joint; E86.0 Dehydration; I10 Essential (primary) hypertension; I34.0 Nonrheumatic mitral (valve) insufficiency; L98.419 Non-pressure chronic ulcer of buttock with unspecified severity; M51.36 Other intervertebral disc degeneration, lumbar region; W18.39XA Other fall on same level, initial encounter; Y93.89 Activity, other specified; Y92.89 Other specified places as the place of occurrence of the external cause; Z79.4 Long term (current) use of insulin; Z86.711 Personal history of pulmonary embolism; Z86.73 Personal history of transient ischemic attack (TIA), and cerebral infarction without residual deficits; Z87.891 Personal history of nicotine dependence; Z86.718 Personal history of other venous thrombosis and embolism
CPT/HCPCS: 36415; 70450; 70551; 72110; 72125; 76770; 80048; 80053; 80061; 81001; 82040; 82306; 82436; 82550; 82570; 82607; 82962; 83735; 84133; 84300; 84443; 85025; 85610; 85730; 93005; 93306; 93880; 99285; G0378; J1644; J1815; 92523-GN; G0515-GN; J2060; J3420; J7030

== ENCOUNTER → 2018-03-20 | Outpatient (CLI) | payer MEDICARE ==
[~2018-03-20] MED LIST changes: +AMLO-150 PO; -AMLO5TAB7 PO; +ERGO500017 PO; +LOSA25TA25 PO; -LOSA25TA6 PO
[2018-03-20 10:38] LABS: ANION GAP 9 mmol/L (5-15); CALCIUM 9.3 mg/dL (8.5-10.1); CHLORIDE 105 mmol/L (98-107); CHOLESTEROL, TOTAL 207 mg/dL (140-239); CREATININE 3.24 mg/dL (0.55-1.02)
[2018-03-20 10:40] LABS: CHOL/HDL RATIO 4.7; HDL CHOL % 21 % (28-40); HDL CHOLESTEROL (DIRECT) 44 mg/dL (40-60); LDL CHOLESTEROL,CALCULATED 139 mg/dL (54-169); LDL/HDL RATIO 3.2 (0.5-3.0); TRIGLYCERIDES 120 mg/dL (50-200); VLDL CHOLESTEROL 24 mg/dL (0-25)
[2018-03-20 13:28] LABS: HEMOGLOBIN A1C 8.6 % (4.2-6.3)
== END | disposition home or self-care (01) ==
LOC: LAB 10:01
PROVIDERS: ATTEND Internal Medicine
DX: E11.9 Type 2 diabetes mellitus without complications (principal); I10 Essential (primary) hypertension; E78.5 Hyperlipidemia, unspecified
CPT/HCPCS: 36415; 80048; 80061; 82043; 83036

== ENCOUNTER 2018-09-15 11:43 | Emergency (ER) | payer MEDICARE ==
[~2018-09-15] VITALS: Ht 154.9 cm; Wt 115.0 kg
[~2018-09-15 11:43] MED LIST changes: +ONDA4VIA60 IVPush; -ONDA4VIA8 IVPush
--- NOTE | 2018-09-15 12:34 | NUR ---
L LEG INJURY 1 WEEK AGO NOW HAS SWELLING IN THE L LOWER LEG
[2018-09-15 12:41] LABS: ALBUMIN 3.5 g/dL (3.4-5.0); ANION GAP 9 mmol/L (5-15); CALCIUM 9.2 mg/dL (8.5-10.1); CHLORIDE 107 mmol/L (98-107); CREATININE 2.79 mg/dL (0.55-1.02)
--- NOTE | 2018-09-15 13:08 | NUR ---
RECEIVED BEDSIDE REPORT FROM ANNEMARIE MCDONALD. PT RESTING ON [facility]. CAREGIVER BEDSIDE. LAB BEDSIDE TO REDRAW. NO ACUTE DISTRESS NOTED.
[2018-09-15 13:23] VITALS: BP 131/42
--- NOTE | 2018-09-15 13:25 | NUR ---
PT RESTING ON GURNEY. NO ACUTE DISTRESS NOTED. NO NEEDS REQUESTED AT THIS TIME.
[2018-09-15 13:29] LABS: BASOPHILS # (AUTO) 0.02 x10^3/uL (0-0.1); BASOPHILS % (AUTO) 0 % (0-1); EOSINOPHILS # (AUTO) 0.25 x10^3/uL (0-0.4); EOSINOPHILS % (AUTO) 3 % (1-7); LYMPHOCYTES # (AUTO) 1.38 x10^3/uL (1-3.4); LYMPHOCYTES % (AUTO) 17 % (22-44); MD NO; MEAN CORPUSCULAR HEMOGLOBIN 29.2 pg (27.0-34.8); MEAN CORPUSCULAR HGB CONC 32.8 g/dL (32.4-35.8); MEAN CORPUSCULAR VOLUME 89.1 fL (80-100); MEAN PLATELET VOLUME 10.5 fL (7.4-10.4); MONOCYTES # (AUTO) 0.45 x10^3/uL (0.2-0.8); MONOCYTES % (AUTO) 6 % (2-9); NEUTROPHILS # (AUTO) 5.97 x10^3/uL (1.8-6.8); NEUTROPHILS % (AUTO) 74 % (42-75); PLATELET COUNT 276 x10^3/uL (130-400); RED BLOOD COUNT 4.15 x10^6/uL (3.82-5.3); RED CELL DISTRIBUTION WIDTH 14.4 % (9.6-15.2)
[2018-09-15 13:33] LABS: INTERNATIONAL NORMALIZED RATIO 0.95 (0.93-1.1)
== END 2018-09-15 14:14 | disposition home or self-care (01) ==
LOC: ED 12:54
DX: S80.12XA Contusion of left lower leg, initial encounter (principal); S80.812A Abrasion, left lower leg, initial encounter; L03.116 Cellulitis of left lower limb; E11.65 Type 2 diabetes mellitus with hyperglycemia; F17.210 Nicotine dependence, cigarettes, uncomplicated; Z86.73 Personal history of transient ischemic attack (TIA), and cerebral infarction without residual deficits; Z90.89 Acquired absence of other organs; W22.8XXA Striking against or struck by other objects, initial encounter; Y93.89 Activity, other specified; Y92.89 Other specified places as the place of occurrence of the external cause; Y99.8 Other external cause status
CPT/HCPCS: 36415; 80048; 82040; 85025; 85610; 85730; 99284

== ENCOUNTER 2019-01-26 22:56 | Inpatient (IN) | payer MEDICARE ==
[~2019-01-26] VITALS: Ht 162.6 cm; Wt 118.7 kg
[2019-01-26] MEDS ORDERED: SODIUM CHLORIDE FLUSH 10ML SYR IVF ONE (23:30)
[2019-01-26] MEDS ORDERED: SODIUM CHLORIDE 0.9% 1,000ML IVBOLUS ONE (23:30)
--- NOTE | 2019-01-26 23:42 | NUR ---
PT BIB [facility] FROM HOME FOR CELLULITIS OF THE LEFT LEG AND BED SORES ON THE BUTTOCKS. PT STATE SHE SPENDS A LOT OF TIME SITTING AND IS NOT ABLE AMBULATE VERY WELL. PT PLACED IN GOWN, ON ALL MONITORS ON [facility] WITH A PILLOW UNDER RIGHT HIP SO PT IS MOSTLY LATERAL LYING.
--- NOTE | 2019-01-26 23:45 | NUR ---
PER ER MD MORALES, URINE SAMPLE NO NECESSARY. PER ER CASINO FLOOR WALKER DARYA, PICTURES OF ULCERS NOT TO BE TAKEN BECAUSE ED CAMERA DOES NOT COMMUNITCATE WITH PRINTER AND CANNOT BE PRINTED.
[2019-01-26 23:47] LABS: BASOPHILS # (AUTO) 0.04 x10^3/uL (0-0.1); BASOPHILS % (AUTO) 0 % (0-1); EOSINOPHILS # (AUTO) 0.56 x10^3/uL (0-0.4); EOSINOPHILS % (AUTO) 5 % (1-7); LYMPHOCYTES # (AUTO) 2.07 x10^3/uL (1-3.4); LYMPHOCYTES % (AUTO) 18 % (22-44); MD NO; MEAN CORPUSCULAR HEMOGLOBIN 28.4 pg (27.0-34.8); MEAN CORPUSCULAR HGB CONC 32.4 g/dL (32.4-35.8); MEAN CORPUSCULAR VOLUME 87.7 fL (80-100); MEAN PLATELET VOLUME 9.9 fL (7.4-10.4); MONOCYTES # (AUTO) 0.71 x10^3/uL (0.2-0.8); MONOCYTES % (AUTO) 6 % (2-9); NEUTROPHILS # (AUTO) 7.97 x10^3/uL (1.8-6.8); NEUTROPHILS % (AUTO) 70 % (42-75); PLATELET COUNT 328 x10^3/uL (130-400); RED BLOOD COUNT 3.88 x10^6/uL (3.82-5.3); RED CELL DISTRIBUTION WIDTH 14.4 % (9.6-15.2)
[2019-01-26 23:55] LABS: ALANINE AMINOTRANSFERASE 17 U/L (12-78); ALBUMIN 3.3 g/dL (3.4-5.0); ANION GAP 5 mmol/L (5-15); CALCIUM 8.8 mg/dL (8.5-10.1); CHLORIDE 106 mmol/L (98-107); CREATININE 3.47 mg/dL (0.55-1.02)
[2019-01-26 23:58] LABS: ALKALINE PHOSPHATASE 103 U/L (45-117); BILIRUBIN,TOTAL 0.4 mg/dL (0.2-1.0); TOTAL PROTEIN 7.7 g/dL (6.4-8.2)
[2019-01-27] MEDS ORDERED: CEFTRIAXONE PMX 1GM/50ML 50 ML IV ONE (00:30)
[2019-01-27] MEDS ORDERED: AZITHROMYCIN 500 MG in SODIUM CHLORIDE 0.9% 250 ML IV ONE (00:30)
[2019-01-27] MEDS ORDERED: CEFTRIAXONE PMX 1GM/50ML 50 ML ONE (01:07)
[2019-01-27] MEDS ORDERED: ENOXAPARIN 40 MG/0.4 ML SQ SCH ×2 (02:00→18:00)
--- NOTE | 2019-01-27 02:31 | NUR ---
REPORT TO ANNEMARIE SOLIS
[2019-01-27 03:26] VITALS: BP 130/72
[2019-01-27 03:41] LABS: RAPID INFLUENZA A Negative (Negative); RAPID INFLUENZA B Negative (Negative)
[2019-01-27 03:55] VITALS: BP 130/72
[2019-01-27] MEDS: ACETAMINOPHEN 325 MG TABLET PO PRN (04:16)
[2019-01-27] MEDS: CLINDAMYCIN PMX 600MG/50ML 50 ML IV SCH ×3 (06:02→22:14)
[2019-01-27 07:04] VITALS: BP 135/70
[2019-01-27] MEDS: LOSARTAN 25MG TABLET PO SCH (07:47)
[2019-01-27] MEDS: GABAPENTIN 300 MG CAPSULE PO SCH ×3 (07:47→20:39)
[2019-01-27] MEDS: INSULIN LISPRO 100 UNITS/ML, PEN SQ-INSULIN SCH ×4 (08:46→20:42)
[2019-01-27] MEDS: HYDROcodone/APAP 5/325 TABLET PO PRN ×4 (12:50→23:34)
[2019-01-27 13:14] VITALS: BP 129/58
[2019-01-27 14:18] LABS: MICROSCOPIC NOT IND
[2019-01-27] MEDS: LACTOBACILLUS CHEW TABLET PO SCH ×3 (14:20→20:39)
[2019-01-27 14:30] LABS: CULTURE INDICATED? NO
[2019-01-27 15:31] LABS: HCT (SEDRATE) 30.1 % (34.6-47.8)
[2019-01-27 19:49] VITALS: BP 126/68
[2019-01-27] MEDS: ATORVASTATIN 40 MG TABLET PO SCH (20:40)
[2019-01-27] MEDS: INSULIN GLARGINE 100 UNITS/ML, PEN SQ-INSULIN SCH (20:42)
[2019-01-28 02:05] VITALS: BP 133/68
[2019-01-28] MEDS: HYDROcodone/APAP 5/325 TABLET PO PRN ×2 (04:23→21:58)
[2019-01-28] MEDS: CLINDAMYCIN PMX 600MG/50ML 50 ML IV SCH ×3 (06:06→22:21)
[2019-01-28 06:15] LABS: CHLORIDE 110 mmol/L (98-107)
[2019-01-28 06:15] LABS: BASOPHILS # (AUTO) 0.05 x10^3/uL (0-0.1); BASOPHILS % (AUTO) 1 % (0-1); EOSINOPHILS # (AUTO) 0.56 x10^3/uL (0-0.4); EOSINOPHILS % (AUTO) 6 % (1-7); LYMPHOCYTES # (AUTO) 2.03 x10^3/uL (1-3.4); LYMPHOCYTES % (AUTO) 21 % (22-44); MD NO; MEAN CORPUSCULAR HEMOGLOBIN 28.1 pg (27.0-34.8); MEAN CORPUSCULAR HGB CONC 32.4 g/dL (32.4-35.8); MEAN CORPUSCULAR VOLUME 86.6 fL (80-100); MEAN PLATELET VOLUME 9.9 fL (7.4-10.4); MONOCYTES % (AUTO) 5 % (2-9); NEUTROPHILS # (AUTO) 6.37 x10^3/uL (1.8-6.8); NEUTROPHILS % (AUTO) 67 % (42-75); PLATELET COUNT 266 x10^3/uL (130-400); RED BLOOD COUNT 3.54 x10^6/uL (3.82-5.3); RED CELL DISTRIBUTION WIDTH 14.4 % (9.6-15.2)
[2019-01-28 06:21] LABS: ANION GAP 5 mmol/L (5-15); CALCIUM 8.4 mg/dL (8.5-10.1); CREATININE 3.12 mg/dL (0.55-1.02)
[2019-01-28 06:54] VITALS: BP 126/74
[2019-01-28] MEDS: LACTOBACILLUS CHEW TABLET PO SCH ×3 (08:02→22:24)
[2019-01-28] MEDS: ENOXAPARIN 30 MG/0.3 ML SQ SCH (08:02)
[2019-01-28] MEDS: LOSARTAN 25MG TABLET PO SCH (08:02)
[2019-01-28] MEDS: AZITHROMYCIN 500 MG in SODIUM CHLORIDE 0.9% 250 ML IV SCH (08:02)
[2019-01-28] MEDS: GABAPENTIN 300 MG CAPSULE PO SCH ×3 (08:02→22:24)
[2019-01-28] MEDS: INSULIN LISPRO 100 UNITS/ML, PEN SQ-INSULIN SCH ×4 (08:02→22:23)
[2019-01-28] MEDS ORDERED: LORazepam 2 MG/ML, 1ML IVPush ONE (09:00)
[2019-01-28] MEDS: INSULIN GLARGINE 100 UNITS/ML, PEN SQ-INSULIN SCH ×3 (12:37→22:24)
[2019-01-28] MEDS ORDERED: MAGNESIUM HYDROXIDE 8%, 30ML UDC ONE (14:03)
[2019-01-28 14:22] VITALS: BP 124/68
[2019-01-28] MEDS ORDERED: MAGNESIUM HYDROXIDE 8%, 30ML UDC PO PRN (14:30)
[2019-01-28] MEDS ORDERED: SENNA/DOCUSATE TABLET PO PRN (14:30)
[2019-01-28 19:38] VITALS: BP 150/75
[2019-01-28] MEDS: ATORVASTATIN 40 MG TABLET PO SCH (22:24)
[2019-01-29] MEDS: CLINDAMYCIN PMX 600MG/50ML 50 ML IV SCH ×2 (06:32→12:13)
[2019-01-29] MEDS: HYDROcodone/APAP 5/325 TABLET PO PRN ×2 (06:40→15:54)
[2019-01-29 07:13] VITALS: BP 173/79
[2019-01-29] MEDS: AZITHROMYCIN 500 MG in SODIUM CHLORIDE 0.9% 250 ML IV SCH (08:15)
[2019-01-29] MEDS: GABAPENTIN 300 MG CAPSULE PO SCH ×3 (08:17→21:42)
[2019-01-29] MEDS: LACTOBACILLUS CHEW TABLET PO SCH ×3 (08:17→21:42)
[2019-01-29] MEDS: ENOXAPARIN 30 MG/0.3 ML SQ SCH (08:17)
[2019-01-29] MEDS: LOSARTAN 25MG TABLET PO SCH (08:18)
[2019-01-29] MEDS: INSULIN GLARGINE 100 UNITS/ML, PEN SQ-INSULIN SCH ×2 (08:18→21:42)
[2019-01-29] MEDS: INSULIN LISPRO 100 UNITS/ML, PEN SQ-INSULIN SCH ×5 (08:19→21:41)
[2019-01-29 08:52] LABS: BASOPHILS # (AUTO) 0.02 x10^3/uL (0-0.1); BASOPHILS % (AUTO) 0 % (0-1); EOSINOPHILS # (AUTO) 0.38 x10^3/uL (0-0.4); EOSINOPHILS % (AUTO) 3 % (1-7); LYMPHOCYTES # (AUTO) 1.21 x10^3/uL (1-3.4); LYMPHOCYTES % (AUTO) 11 % (22-44); MD NO; MEAN CORPUSCULAR HEMOGLOBIN 27.9 pg (27.0-34.8); MEAN CORPUSCULAR HGB CONC 32.4 g/dL (32.4-35.8); MEAN CORPUSCULAR VOLUME 86.2 fL (80-100); MEAN PLATELET VOLUME 9.8 fL (7.4-10.4); MONOCYTES # (AUTO) 0.62 x10^3/uL (0.2-0.8); MONOCYTES % (AUTO) 6 % (2-9); NEUTROPHILS # (AUTO) 8.82 x10^3/uL (1.8-6.8); NEUTROPHILS % (AUTO) 80 % (42-75); PLATELET COUNT 280 x10^3/uL (130-400); RED BLOOD COUNT 3.85 x10^6/uL (3.82-5.3); RED CELL DISTRIBUTION WIDTH 13.9 % (9.6-15.2)
[2019-01-29 09:00] LABS: ANION GAP 6 mmol/L (5-15); CALCIUM 8.2 mg/dL (8.5-10.1); CHLORIDE 108 mmol/L (98-107)
[2019-01-29 13:18] VITALS: BP 128/70
[2019-01-29] MEDS: CLINDAMYCIN 300 MG CAPSULE PO SCH (17:00)
[2019-01-29 19:24] VITALS: BP 148/85
[2019-01-29] MEDS: ATORVASTATIN 40 MG TABLET PO SCH (21:42)
[2019-01-29] MEDS: ACETAMINOPHEN 325 MG TABLET PO PRN (21:50)
[2019-01-30] MEDS: CLINDAMYCIN 300 MG CAPSULE PO SCH ×2 (00:34→08:36)
[2019-01-30 01:56] VITALS: BP 131/66
[2019-01-30] MEDS: ACETAMINOPHEN 325 MG TABLET PO PRN (05:02)
[2019-01-30 07:48] VITALS: BP 146/77
[2019-01-30] MEDS: INSULIN LISPRO 100 UNITS/ML, PEN SQ-INSULIN SCH ×2 (08:34→12:05)
[2019-01-30] MEDS: LOSARTAN 25MG TABLET PO SCH (08:35)
[2019-01-30] MEDS: ENOXAPARIN 30 MG/0.3 ML SQ SCH (08:35)
[2019-01-30] MEDS: LACTOBACILLUS CHEW TABLET PO SCH (08:35)
[2019-01-30] MEDS: GABAPENTIN 300 MG CAPSULE PO SCH (08:35)
[2019-01-30] MEDS ORDERED: AZITHROMYCIN 500 MG TABLET PO SCH (09:00)
[2019-01-30] MEDS: HYDROcodone/APAP 5/325 TABLET PO PRN (12:14)
[2019-01-30 15:16] VITALS: BP 151/78
[2019-01-30] MEDS ORDERED: INSU100I11 SQ-INSULIN (15:42)
[2019-01-30] MEDS ORDERED: INSU100I13 SQ-INSULIN (15:42)
[2019-01-30] MEDS ORDERED: HYDR-3237 PO (15:42)
[2019-01-30] MEDS ORDERED: GABA300C10 PO (15:42)
[2019-01-30] MEDS ORDERED: ACID1TAB7 PO (15:42)
[2019-01-30] MEDS ORDERED: DOXY100T PO (15:42)
[2019-01-30] MEDS ORDERED: CEFD300C37 PO (15:42)
[2019-01-30] MEDS ORDERED: CEFDINIR 300 MG CAPSULE PO SCH (16:00)
[2019-01-30] MEDS ORDERED: DOXYCYCLINE 100MG TABLET PO SCH (21:00)
== END 2019-01-30 17:11 | DRG 871 ==
LOC: ED 23:20 → EDIP 01-27 01:38 → 4NE 01-27 02:54 → 3N 01-29 19:00
PROVIDERS: ADMIT Internal Medicine; ATTEND Internal Medicine
DX: A41.9 Sepsis, unspecified organism (principal); J15.9 Unspecified bacterial pneumonia; L03.116 Cellulitis of left lower limb; I13.0 Hypertensive heart and chronic kidney disease with heart failure and stage 1 through stage 4 chronic kidney disease, or unspecified chronic kidney disease; I50.32 Chronic diastolic (congestive) heart failure; L89.90 Pressure ulcer of unspecified site, unspecified stage; N18.3 Chronic kidney disease, stage 3 (moderate); Z88.0 Allergy status to penicillin; D63.8 Anemia in other chronic diseases classified elsewhere; E11.22 Type 2 diabetes mellitus with diabetic chronic kidney disease; E11.65 Type 2 diabetes mellitus with hyperglycemia; F17.200 Nicotine dependence, unspecified, uncomplicated; L98.419 Non-pressure chronic ulcer of buttock with unspecified severity; M53.3 Sacrococcygeal disorders, not elsewhere classified; R62.7 Adult failure to thrive; Z51.5 Encounter for palliative care; Z66 Do not resuscitate; Z79.4 Long term (current) use of insulin; Z79.899 Other long term (current) drug therapy; Z86.711 Personal history of pulmonary embolism; Z86.718 Personal history of other venous thrombosis and embolism; Z86.73 Personal history of transient ischemic attack (TIA), and cerebral infarction without residual deficits; Z96.612 Presence of left artificial shoulder joint
CPT/HCPCS: 36415; 71045; 72195; 80048; 80053; 81003; 82962; 83036; 83605; 84145; 85025; 85651; 86140; 87040; 87400; 93005; 96365; 99285; G0378; J0456; J0696; J1650; J1815; J2060; J7030; J7050

== ENCOUNTER 2019-06-12 20:13 | Inpatient (IN) | payer MEDICARE ==
[~2019-06-12] VITALS: Ht 165.1 cm; Wt 112.7 kg
[~2019-06-12 20:13] MED LIST changes: +ACID1TAB3 PO; +AMOX1TAB61 PO; +AMPI3VIA IVPB; +CEFD300C37 PO; +DOXY100T PO; +DULO30CA2 PO; +FURO-93 PO; +HYDR-3237 PO; +MELA5TAB14 PO; +NICO-485 TD; +NYST15PO2 TP
[2019-06-12] MEDS ORDERED: SODIUM CHLORIDE FLUSH 10ML SYR IVF ONE (21:00)
[2019-06-12 21:28] LABS: MEAN CORPUSCULAR HGB CONC 32.4 g/dL (32.4-35.8); MEAN CORPUSCULAR VOLUME 83.2 fL (80-100); MEAN PLATELET VOLUME 10.1 fL (7.4-10.4); PLATELET COUNT 334 x10^3/uL (130-400); RED BLOOD COUNT 4.18 x10^6/uL (3.82-5.3); RED CELL DISTRIBUTION WIDTH 14.7 % (9.6-15.2)
[2019-06-12 21:32] LABS: ALANINE AMINOTRANSFERASE 12 U/L (12-78); ALBUMIN 3.3 g/dL (3.4-5.0); ANION GAP 8 mmol/L (5-15); CALCIUM 9.2 mg/dL (8.5-10.1); CHLORIDE 108 mmol/L (98-107)
[2019-06-12 21:39] LABS: ALKALINE PHOSPHATASE 101 U/L (45-117); BILIRUBIN,TOTAL 0.5 mg/dL (0.2-1.0)
[2019-06-12 22:00] LABS: BASOPHILS # (AUTO) 0.05 x10^3/uL (0-0.1); BASOPHILS % (AUTO) 0 % (0-1); EOSINOPHILS # (AUTO) 0.35 x10^3/uL (0-0.4); EOSINOPHILS % (AUTO) 3 % (1-7); LYMPHOCYTES # (AUTO) 2.68 x10^3/uL (1-3.4); LYMPHOCYTES % (AUTO) 20 % (22-44); MD SCAN; MONOCYTES # (AUTO) 0.68 x10^3/uL (0.2-0.8); MONOCYTES % (AUTO) 5 % (2-9); NEUTROPHILS # (AUTO) 9.79 x10^3/uL (1.8-6.8); NEUTROPHILS % (AUTO) 72 % (42-75)
[2019-06-12 22:29] LABS: HCT (SEDRATE) 34.7 % (34.6-47.8)
[2019-06-12] MEDS ORDERED: OXYcodone/APAP 5/325MG TABLET PO ONE (22:30)
[2019-06-12] MEDS ORDERED: CEFTRIAXONE PMX 1GM/50ML 50 ML IV ONE (22:30)
[2019-06-12] MEDS ORDERED: OXYcodone/APAP 5/325MG TABLET ONE (22:43)
[2019-06-12] MEDS ORDERED: CEFTRIAXONE PMX 1GM/50ML 50 ML ONE (22:43)
[2019-06-12] MEDS ORDERED: METFORMIN (23:12)
[2019-06-12 23:50] VITALS: BP 117/56
[2019-06-13] MEDS ORDERED: POLYETHYLENE GLYCOL 17 GM PACKET PO PRN
[2019-06-13] MEDS ORDERED: BISACODYL 10 MG SUPP PR PRN
[2019-06-13] MEDS ORDERED: ONDANSETRON ODT 4 MG PO PRN
[2019-06-13] MEDS ORDERED: ACETAMINOPHEN 325 MG TABLET PO PRN
[2019-06-13 00:17] VITALS: BP 155/82
[2019-06-13] MEDS: SODIUM CHLORIDE 0.9% 1,000 ML IV SCH ×2 (00:25→10:48)
[2019-06-13] MEDS: AMPICILLIN/SULBACTAM 1,500 MG in SODIUM CHLORIDE 0.9% 50 ML IV SCH (00:27)
[2019-06-13] MEDS: MELATONIN 5 MG TABLET PO SCH ×2 (00:29→20:05)
[2019-06-13] MEDS: HEPARIN 5,000 UNITS/ML, 1ML SQ SCH ×3 (00:30→15:21)
[2019-06-13] MEDS ORDERED: ASPI81TA45 PO (01:03)
[2019-06-13 01:04] LABS: BASOPHILS # (AUTO) 0.03 x10^3/uL (0-0.1); BASOPHILS % (AUTO) 0 % (0-1); EOSINOPHILS # (AUTO) 0.45 x10^3/uL (0-0.4); EOSINOPHILS % (AUTO) 4 % (1-7); LYMPHOCYTES # (AUTO) 2.44 x10^3/uL (1-3.4); LYMPHOCYTES % (AUTO) 23 % (22-44); MD NO; MEAN CORPUSCULAR HEMOGLOBIN 27.1 pg (27.0-34.8); MEAN CORPUSCULAR HGB CONC 32.3 g/dL (32.4-35.8); MEAN CORPUSCULAR VOLUME 83.9 fL (80-100); MEAN PLATELET VOLUME 9.7 fL (7.4-10.4); MONOCYTES % (AUTO) 6 % (2-9); NEUTROPHILS # (AUTO) 7.01 x10^3/uL (1.8-6.8); NEUTROPHILS % (AUTO) 67 % (42-75); PLATELET COUNT 300 x10^3/uL (130-400); RED BLOOD COUNT 4.07 x10^6/uL (3.82-5.3); RED CELL DISTRIBUTION WIDTH 14.5 % (9.6-15.2)
[2019-06-13 01:13] LABS: ANION GAP 9 mmol/L (5-15); CALCIUM 9.1 mg/dL (8.5-10.1); CHLORIDE 111 mmol/L (98-107); CREATININE 2.79 mg/dL (0.55-1.02)
[2019-06-13] MEDS: INSULIN LISPRO 100 UNITS/ML, PEN SQ-INSULIN SCH ×5 (07:00→20:05)
[2019-06-13 07:59] VITALS: BP 148/74
[2019-06-13] MEDS: SENNA/DOCUSATE TABLET PO SCH (08:16)
[2019-06-13] MEDS: LOSARTAN 25MG TABLET PO SCH (08:16)
[2019-06-13] MEDS: GABAPENTIN 100 MG CAPSULE PO SCH ×3 (08:16→20:05)
[2019-06-13] MEDS: morphine SULFATE 10 MG/ML, 1ML IVPush PRN ×3 (08:24→19:19)
[2019-06-13] MEDS: HYDROcodone/APAP 5/325 TABLET PO PRN ×3 (10:48→20:05)
[2019-06-13 13:22] VITALS: BP 155/72
[2019-06-13] MEDS ORDERED: PHARMACY MAY ADJ FOR RENAL FX MC PRN (16:00)
[2019-06-13 19:13] VITALS: BP 157/81
[2019-06-14] MEDS: HEPARIN 5,000 UNITS/ML, 1ML SQ SCH ×3 (00:25→16:02)
[2019-06-14] MEDS: AMPICILLIN/SULBACTAM 1,500 MG in SODIUM CHLORIDE 0.9% 50 ML IV SCH ×2 (00:25→13:53)
[2019-06-14 00:50] VITALS: BP 158/81
[2019-06-14 05:21] LABS: BASOPHILS # (AUTO) 0.03 x10^3/uL (0-0.1); BASOPHILS % (AUTO) 0 % (0-1); EOSINOPHILS # (AUTO) 0.53 x10^3/uL (0-0.4); EOSINOPHILS % (AUTO) 6 % (1-7); LYMPHOCYTES # (AUTO) 2.12 x10^3/uL (1-3.4); LYMPHOCYTES % (AUTO) 23 % (22-44); MD NO; MEAN CORPUSCULAR HEMOGLOBIN 26.7 pg (27.0-34.8); MEAN CORPUSCULAR HGB CONC 31.6 g/dL (32.4-35.8); MEAN CORPUSCULAR VOLUME 84.8 fL (80-100); MEAN PLATELET VOLUME 9.7 fL (7.4-10.4); MONOCYTES # (AUTO) 0.58 x10^3/uL (0.2-0.8); MONOCYTES % (AUTO) 6 % (2-9); NEUTROPHILS # (AUTO) 6.01 x10^3/uL (1.8-6.8); NEUTROPHILS % (AUTO) 65 % (42-75); PLATELET COUNT 301 x10^3/uL (130-400); RED BLOOD COUNT 3.74 x10^6/uL (3.82-5.3); RED CELL DISTRIBUTION WIDTH 14.6 % (9.6-15.2)
[2019-06-14 05:28] LABS: ANION GAP 6 mmol/L (5-15); CALCIUM 8.4 mg/dL (8.5-10.1); CHLORIDE 114 mmol/L (98-107); CREATININE 2.26 mg/dL (0.55-1.02)
[2019-06-14] MEDS: INSULIN LISPRO 100 UNITS/ML, PEN SQ-INSULIN SCH ×4 (07:00→20:59)
[2019-06-14 08:18] VITALS: BP 133/77
[2019-06-14] MEDS: SENNA/DOCUSATE TABLET PO SCH ×2 (09:00→09:36)
[2019-06-14] MEDS: GABAPENTIN 100 MG CAPSULE PO SCH ×3 (09:36→20:44)
[2019-06-14] MEDS: LOSARTAN 25MG TABLET PO SCH (09:36)
[2019-06-14] MEDS: HYDROcodone/APAP 5/325 TABLET PO PRN ×3 (09:42→20:59)
[2019-06-14 13:52] VITALS: BP 119/69
[2019-06-14 20:04] VITALS: BP 148/78
[2019-06-14] MEDS: MELATONIN 5 MG TABLET PO SCH (20:44)
[2019-06-15 01:19] VITALS: BP 137/79
[2019-06-15] MEDS: AMPICILLIN/SULBACTAM 1,500 MG in SODIUM CHLORIDE 0.9% 50 ML IV SCH (02:12)
[2019-06-15] MEDS: HEPARIN 5,000 UNITS/ML, 1ML SQ SCH ×3 (02:12→17:36)
[2019-06-15] MEDS: HYDROcodone/APAP 5/325 TABLET PO PRN ×2 (02:39→19:52)
[2019-06-15 04:22] LABS: BASOPHILS # (AUTO) 0.04 x10^3/uL (0-0.1); BASOPHILS % (AUTO) 1 % (0-1); EOSINOPHILS # (AUTO) 0.53 x10^3/uL (0-0.4); EOSINOPHILS % (AUTO) 6 % (1-7); LYMPHOCYTES # (AUTO) 1.92 x10^3/uL (1-3.4); LYMPHOCYTES % (AUTO) 23 % (22-44); MD NO; MEAN CORPUSCULAR HEMOGLOBIN 27.3 pg (27.0-34.8); MEAN CORPUSCULAR HGB CONC 32.5 g/dL (32.4-35.8); MONOCYTES # (AUTO) 0.54 x10^3/uL (0.2-0.8); MONOCYTES % (AUTO) 7 % (2-9); NEUTROPHILS # (AUTO) 5.15 x10^3/uL (1.8-6.8); NEUTROPHILS % (AUTO) 63 % (42-75); PLATELET COUNT 264 x10^3/uL (130-400); RED BLOOD COUNT 3.57 x10^6/uL (3.82-5.3); RED CELL DISTRIBUTION WIDTH 14.9 % (9.6-15.2)
[2019-06-15 04:32] LABS: ANION GAP 9 mmol/L (5-15); CALCIUM 8.1 mg/dL (8.5-10.1); CHLORIDE 111 mmol/L (98-107); CREATININE 2.24 mg/dL (0.55-1.02)
[2019-06-15 06:52] VITALS: BP 150/77
[2019-06-15] MEDS: INSULIN LISPRO 100 UNITS/ML, PEN SQ-INSULIN SCH ×4 (07:25→21:36)
[2019-06-15] MEDS: GABAPENTIN 100 MG CAPSULE PO SCH ×3 (08:31→21:23)
[2019-06-15] MEDS: LOSARTAN 25MG TABLET PO SCH (08:31)
[2019-06-15] MEDS: SENNA/DOCUSATE TABLET PO SCH (08:32)
[2019-06-15 12:59] VITALS: BP 138/73
[2019-06-15] MEDS: BACITRACIN OINT 500U/GM, 28GM TP SCH ×2 (17:36→21:23)
[2019-06-15 18:54] VITALS: BP 130/75
[2019-06-15] MEDS: MELATONIN 5 MG TABLET PO SCH (21:23)
[2019-06-16 00:23] VITALS: BP 148/79
[2019-06-16] MEDS: HEPARIN 5,000 UNITS/ML, 1ML SQ SCH ×3 (00:30→15:51)
[2019-06-16 06:38] VITALS: BP 175/71
[2019-06-16] MEDS: INSULIN LISPRO 100 UNITS/ML, PEN SQ-INSULIN SCH ×4 (07:00→20:34)
[2019-06-16] MEDS: BACITRACIN OINT 500U/GM, 28GM TP SCH ×3 (07:54→20:33)
[2019-06-16] MEDS: GABAPENTIN 100 MG CAPSULE PO SCH ×3 (07:54→20:33)
[2019-06-16] MEDS: LOSARTAN 25MG TABLET PO SCH (07:54)
[2019-06-16] MEDS: SENNA/DOCUSATE TABLET PO SCH (07:54)
[2019-06-16] MEDS: HYDROcodone/APAP 5/325 TABLET PO PRN ×3 (11:18→20:33)
[2019-06-16 15:00] VITALS: BP 139/78
[2019-06-16] MEDS: MELATONIN 5 MG TABLET PO SCH (20:33)
[2019-06-16 22:14] VITALS: BP 130/71
[2019-06-17] MEDS: HEPARIN 5,000 UNITS/ML, 1ML SQ SCH ×3 (00:46→15:55)
[2019-06-17] MEDS: HYDROcodone/APAP 5/325 TABLET PO PRN ×2 (00:46→07:51)
[2019-06-17 00:50] VITALS: BP 122/71
[2019-06-17 06:35] VITALS: BP 159/83
[2019-06-17] MEDS: INSULIN LISPRO 100 UNITS/ML, PEN SQ-INSULIN SCH ×4 (07:00→21:20)
[2019-06-17] MEDS: SENNA/DOCUSATE TABLET PO SCH (07:51)
[2019-06-17] MEDS: LOSARTAN 25MG TABLET PO SCH (07:51)
[2019-06-17] MEDS: GABAPENTIN 100 MG CAPSULE PO SCH ×3 (07:51→21:20)
[2019-06-17] MEDS: BACITRACIN OINT 500U/GM, 28GM TP SCH ×3 (07:52→21:20)
[2019-06-17 13:20] VITALS: BP 158/88
[2019-06-17 19:32] VITALS: BP 151/73
[2019-06-17] MEDS: MELATONIN 5 MG TABLET PO SCH (21:20)
[2019-06-18] MEDS: HEPARIN 5,000 UNITS/ML, 1ML SQ SCH ×3 (00:35→16:30)
[2019-06-18 01:13] VITALS: BP 154/77
[2019-06-18] MEDS: INSULIN LISPRO 100 UNITS/ML, PEN SQ-INSULIN SCH ×3 (07:00→16:00)
[2019-06-18 07:37] VITALS: BP 138/72
[2019-06-18] MEDS: SENNA/DOCUSATE TABLET PO SCH (08:23)
[2019-06-18] MEDS: BACITRACIN OINT 500U/GM, 28GM TP SCH ×2 (08:23→16:00)
[2019-06-18] MEDS: GABAPENTIN 100 MG CAPSULE PO SCH ×2 (08:23→16:00)
[2019-06-18] MEDS: LOSARTAN 25MG TABLET PO SCH (08:23)
[2019-06-18] MEDS ORDERED: ACET325T26 PO (13:26)
[2019-06-18] MEDS ORDERED: BACI28.42 TP (13:26)
[2019-06-18] MEDS ORDERED: INSU100I11 SQ-INSULIN (13:26)
[2019-06-18 13:30] VITALS: BP 152/74
== END 2019-06-18 17:17 | DRG 871 ==
LOC: ED 22:06 → EDIP 22:47 → 3N 23:20
PROVIDERS: ADMIT Internal Medicine; ATTEND Internal Medicine Infectious Disease
DX: A41.9 Sepsis, unspecified organism (principal); L89.303 Pressure ulcer of unspecified buttock, stage 3; N18.4 Chronic kidney disease, stage 4 (severe); K62.5 Hemorrhage of anus and rectum; L03.317 Cellulitis of buttock; Z68.41 Body mass index [BMI] 40.0-44.9, adult; R62.7 Adult failure to thrive; L89.152 Pressure ulcer of sacral region, stage 2; E66.01 Morbid (severe) obesity due to excess calories; I12.9 Hypertensive chronic kidney disease with stage 1 through stage 4 chronic kidney disease, or unspecified chronic kidney disease; Z59.0 Homelessness; F17.210 Nicotine dependence, cigarettes, uncomplicated; E11.22 Type 2 diabetes mellitus with diabetic chronic kidney disease; D64.9 Anemia, unspecified; Z79.4 Long term (current) use of insulin; Z86.711 Personal history of pulmonary embolism; Z86.718 Personal history of other venous thrombosis and embolism; Z86.73 Personal history of transient ischemic attack (TIA), and cerebral infarction without residual deficits
CPT/HCPCS: 36415; 80048; 80053; 82962; 83540; 83550; 83605; 84145; 84443; 85025; 85651; 86140; 87040; 87070; 87077; 87186; 87205; 99285; G0378; J0696; J1644; J0295; J1815; J2270; J7030

== ENCOUNTER 2019-12-10 12:21 | Emergency (ER) | payer MEDICARE ==
[~2019-12-10] VITALS: Ht 165.1 cm; Wt 98.5 kg
[~2019-12-10 12:21] MED LIST changes: +ACET325T26 PO; +ASPI81TA45 PO; +BACI28.42 TP; +CIPR500T87 PO; +METFORMIN; -PANT40TA5 PO; +PANT40TA6 PO
[2019-12-10 12:35] VITALS: BP 144/84
--- NOTE | 2019-12-10 12:38 | NUR ---
PT BIB EMS FOR BLEEDING FROM HER PRESSURE SORE ON HER BOTTOM. PT [facility] AND SAYS IT STARTED BLEEDING TODAY. WOUND IS PINK AND DRY WITH NO EVIDENCE OF BLEEDING. SKIN IS INTACT. PT DOES HAVE HX OF STAGE 3 PRESSURE ULCER. PT IS NON AMBULATORY BECAUSE "LAST TIME I WAS HERE THEY NEVER GOT ME OUT OF BED AND NOW I CANT WALK". 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 VSS. PROVIDER IS BEDSIDE FOR ASSESSMENT. PT CONNECTED TO MONITORING EQUIPMENT. BLANKET PROVIDED.
[2019-12-10 13:06] LABS: BASOPHILS % (AUTO) 2 % (0-1); EOSINOPHILS % (AUTO) 6 % (1-7); LYMPHOCYTES % (AUTO) 20 % (22-44); MD NO; MEAN CORPUSCULAR HEMOGLOBIN 27.3 pg (27.0-34.8); MEAN CORPUSCULAR HGB CONC 31.7 g/dL (32.4-35.8); MEAN PLATELET VOLUME 9.4 fL (7.4-10.4); MONOCYTES % (AUTO) 6 % (2-9); NEUTROPHILS % (AUTO) 67 % (42-75); PLATELET COUNT 360 x10^3/uL (130-400); RED BLOOD COUNT 3.62 x10^6/uL (3.82-5.3); RED CELL DISTRIBUTION WIDTH 17.3 % (9.6-15.2)
--- NOTE | 2019-12-10 13:07 | NUR ---
STRAIGHT CATH PERFORMED. FEMALE RNGALE ASSISTED.
[2019-12-10 13:15] LABS: MICROSCOPIC NOT IND
[2019-12-10 13:28] LABS: ALBUMIN 2.8 g/dL (3.4-5.0); ANION GAP 7 mmol/L (5-15); CALCIUM 8.7 mg/dL (8.5-10.1); CHLORIDE 114 mmol/L (98-107)
[2019-12-10 13:32] LABS: ALANINE AMINOTRANSFERASE 9 U/L (12-78); ALKALINE PHOSPHATASE 83 U/L (45-117); BILIRUBIN,TOTAL 0.4 mg/dL (0.2-1.0); CREATININE 2.68 mg/dL (0.55-1.02); TOTAL PROTEIN 7.3 g/dL (6.4-8.2)
== END 2019-12-10 15:28 | disposition home or self-care (01) ==
LOC: ED 14:20
DX: L03.317 Cellulitis of buttock (principal); D64.9 Anemia, unspecified; I12.9 Hypertensive chronic kidney disease with stage 1 through stage 4 chronic kidney disease, or unspecified chronic kidney disease; N18.9 Chronic kidney disease, unspecified; E11.22 Type 2 diabetes mellitus with diabetic chronic kidney disease; Z90.89 Acquired absence of other organs
CPT/HCPCS: 36415; 80053; 81003; 85025; 99283